=== PATIENT | female | born 1990 | race Two or more races ===

== ENCOUNTER 2024-05-06 05:52 | Emergency (ER) | payer MEDICAID, SELFPAY ==
[2024-05-06 05:53] VITALS: BMI 36.0
[2024-05-06 05:59] VITALS: BP 148/99; PULSE 88; RESP 18; TEMP 36.5; O2SAT 96
--- NOTE | 2024-05-06 06:13 | EDNOTE_ITS ---
ED Female Urogenital RME/HPI General Chief complaint: Urogenital-Female Stated complaint: PELVIC PAIN Time Seen by Provider: 05/06/24 06:05 Source: patient, RN notes reviewed and old records reviewed Arrival date/time: 05/06/24 05:52 Mode of arrival: ambulatory Limitations: no limitations RME / HPI RME / HPI Narrative: 33yof presents to ED for left pelvic pain that initiated this morning. History of ovarian cysts and right oophorectomy, current pain feels similar. Patient c/o nausea but no vomiting. No fever or urinary symptoms reported. Aleve taken at 0300 this morning with mild relief Related Data Home Medications ?Medication ?Instructions ?Recorded ?Confirmed amlodipine 5 mg tablet 5 mg PO DAILY High Blood Pressure 01/02/20 01/02/20 clindamycin HCl 300 mg capsule 300 mg PO BID yeast infection 01/02/20 01/02/20 loratadine 10 mg capsule 10 mg PO QDAY 01/02/20 01/02/20 metformin 1,000 mg tablet 1,000 mg PO BID 01/02/20 01/02/20 Previous Rx's ?Medication ?Instructions ?Recorded pseudoephedrine HCl 30 mg tablet 30 mg PO Q6H #20 tabs 01/28/21 cephalexin 500 mg capsule 500 mg PO QID #28 caps 06/07/22 acetaminophen 500 mg tablet 1,000 mg (2 x 500 mg) PO Q6H PRN 05/06/24 (Tylenol Extra Strength) pain #30 tabs ibuprofen 600 mg tablet 600 mg PO Q6H PRN pain #30 tabs 05/06/24 ondansetron 4 mg disintegrating 4 mg PO Q6H PRN nausea and 05/06/24 tablet vomiting #10 tabs Allergies Allergy/AdvReac Type Severity Reaction Status Date / Time No Known Allergies Allergy Verified 07/04/21 11:49 Review of Systems Review of Systems Systems Reviewed: All systems reviewed, normal except as documented Constitutional Constitutional: Denies chills and Denies fever(s) Gastrointestinal Gastrointestinal: Reports nausea and Denies vomiting Genitourinary Genitourinary: Denies dysuria, Reports pelvic pain and Denies vaginal discharge Musculoskeletal Musculoskeletal: Denies back pain Past Medical History Past Medical History CARDIAC: Positive Hypertension ENDOCRINE: Positive Diabetes Mellitus Type 2 Surgical History OTHER SURGICAL HX: , right oophorectomy Social History SMOKING STATUS: Never smoker SUBSTANCE USE: does not use ALCOHOL: Current (Social) Past Medical History Comments PMH COMMENT: Obesity ED Exam General Limitations: Present no limitations General appearance: Present alert, in no apparent distress and obese Head Head exam: Present atraumatic and normocephalic Eye Eye exam: Present normal appearance, PERRL and EOMI ENT ENT exam: Present normal exam and mucous membranes moist Neck Neck exam: Present normal inspection and full ROM Chest Chest inspection: Present normal inspection and symmetric chest wall rise Respiratory Respiratory exam: Present normal lung sounds bilaterally; Absent respiratory distress Cardiovascular Cardiovascular exam: Present regular rate and normal rhythm Abdominal Exam Abdominal exam: Present soft; Absent distention, tenderness or guarding Extremities Exam Extremities exam: Present normal inspection and full ROM Back Exam Back exam: Absent CVA tenderness (R) or CVA tenderness (L) Neurological Exam Neurological exam: Present alert and oriented X3 Psychiatric Psychiatric exam: Present normal affect and normal mood Skin Skin exam: Present warm, dry, intact and normal color Course Quality Measures none Orders Category Date Time Status US pelvic complete Stat Exams 05/06/24 06:14 Completed CBC Stat Lab 05/06/24 06:42 Completed CMP [Comprehensive Metabolic Panel] Stat Lab 05/06/24 06:42 Completed HCG Qualitative,Urine Stat Lab 05/06/24 06:19 Completed UA [Urinalysis] Stat Lab 05/06/24 06:19 Completed Acetaminophen Tab [Tylenol ES Tab] Med 05/06/24 06:14 Discontinued 1,000 mg PO X1 ONE Ketorolac Inj [Toradol Inj] Med 05/06/24 06:14 Discontinued 30 mg IM X1 ONE Ondansetron Odt [Zofran Odt] Med 05/06/24 06:14 Discontinued 4 mg PO X1 ONE Vital Signs Vital signs: Vital Signs Temperature 97.7 F 05/06/24 05:59 Pulse Rate 88 05/06/24 05:59 Respiratory Rate 18 05/06/24 05:59 Blood Pressure 148/99 H 05/06/24 05:59 Pulse Oximetry (%) 96 05/06/24 05:59 Oxygen Delivery Method Room Air 05/06/24 05:59 Urogenital - Female MDM Narrative MDM Narrative:: 33yof presents to ED for left pelvic pain that initiated this morning. History of ovarian cysts and right oophorectomy, current pain feels similar. Patient c/o nausea but no vomiting. No fever or urinary symptoms reported. Aleve taken at 0300 this morning with mild relief. Patient updated on labs and imaging. Encouraged close follow-up with Chief Physical Therapist as needed. Motrin/Tylenol prn pain. Stable for discharge, RT ED precautions given Patient data External records reviewed:: [facility] previous records (06/06/2022 ED visit for cocaine abuse) Clinical information provided by:: patient Social determinants that could affect healthcare access:: other (specify) (Poor access to healthcare, unemployed) Patient has the following chronic illnesses:: Hypertension, diabetes, obesity, ovarian cyst How is presenting disease/condition affected by chronic disease/condition?: exacerbated by Evaluation data The following diagnostics were reviewed and interpreted by me:: lab results and radiology exam(s) Lab and/or radiology exams considered but not ordered:: None Interpretation Summary: WBC 16 Glucose 257 UA negative for leuks/nitrites Negative Upreg Pelvic ultrasound: Small left ovarian cyst Medications / Prescriptions Medications or Prescriptions considered but not ordered:: No antibiotics recommended at this time Medication administrations:: Medication Administration History Discontinued Medications Acetaminophen (Acetaminophen 500 Mg Tablet) 1,000 mg PO X1 ONE Stop: 05/06/24 06:15 Last Admin: 05/06/24 06:30 Dose: 1,000 mg Documented By: SE Ketorolac Tromethamine (Ketorolac Inj 60 Mg/2 Ml Vial) 30 mg IM X1 ONE Stop: 05/06/24 06:15 Last Admin: 05/06/24 06:34 Dose: 30 mg Documented By: SE Ondansetron HCl (Ondansetron Odt 4 Mg Tabrap) 4 mg PO X1 ONE; Protocol Stop: 05/06/24 06:15 Last Admin: 05/06/24 06:37 Dose: 4 mg Documented By: Above medications administered in the ED Consultations Consultation(s) initiated? (list below): No Diagnosis Urogenital Female Differential Diagnosis: urinary tract infection, cervicitis, ovarian cyst, ruptured ovarian cyst and cystitis Most likely diagnosis given after review of the tests above:: Left ovarian cyst Admission Indicated Admission indicated?: not indicated Admission Request Was there a request for admission?: No Disposition Plan Disposition Plan: Discharge Discharge Attestation Discharge Attestation: The patient and all family members were given an opportunity to ask questions and understood the discharge instructions. Discharge instructions specifically effects, indications for sooner follow up or return to the emergency department, and the expected course of current diagnosis. Patient condition: Stable Discharge Plan Plan Patient Disposition: HOME (Self Care) Patient condition on transfer: Stable Prescriptions/Referrals Prescriptions/Med Rec: New ondansetron 4 mg tablet,disintegrating 4 mg PO Q6H PRN (Reason: nausea and vomiting) Qty: 10 0RF acetaminophen [Tylenol Extra Strength] 500 mg tablet 1,000 mg PO Q6H PRN (Reason: pain) Qty: 30 0RF ibuprofen 600 mg tablet 600 mg PO Q6H PRN (Reason: pain) Qty: 30 0RF No Action pseudoephedrine HCl 30 mg tablet 30 mg PO Q6H Qty: 20 0RF amlodipine 5 mg Tablet 5 mg PO DAILY metformin 1,000 mg Tablet 1,000 mg PO BID loratadine 10 mg Capsule 10 mg PO QDAY clindamycin HCl 300 mg Capsule 300 mg PO BID cephalexin 500 mg capsule 500 mg PO QID Qty: 28 0RF Referrals: Temporary Provider,ED [Physician] - In 1 week Problem List Clinical Impression: Left ovarian cyst, Pelvic pain Patient/Caregiver Discharge Instructions Education Materials: ED Ovarian Cyst Print Language: Armenian Stand Alone Forms: Tabatha Award Info., Patient Portal Info Letter PA/ABSORPTION PLANT OPERATOR HELPER Supervising Physician PA/ABSORPTION PLANT OPERATOR HELPER Supervising Physician: Tammy
--- NOTE | 2024-05-06 06:14 | XR_ITS ---
Examination: Pelvic ultrasound, transabdominal, complete Technique: Transabdominal ultrasound of the pelvis performed using grayscale imaging Date and time of exam: May 06, 2024 0735 hrs. Comparison July 23, 2019 Indications: Left-sided pelvic pain beginning one month ago, history removal left ovarian cyst 11 years ago Findings: Uterus 9.1 x 4.0 x 6.0 cm Intrauterine device satisfactory position No uterine mass or intrauterine gestation Absent right ovary Left ovary 4.5 x 2.5 x 3.0 cm arterial flow, 2.0 x 1.5 x 1.5 cm simple cyst Impression: Intrauterine device satisfactory position Small left ovarian cyst
[2024-05-06] MEDS: ACETAMINOPHEN 500 MG TABLET 1000 MG PO (06:30)
[2024-05-06] MEDS: KETOROLAC INJ 60 MG/2 ML VIAL 30 MG IM (06:34)
[2024-05-06] MEDS: ONDANSETRON ODT 4 MG TABRAP PO (06:37)
[2024-05-06 06:42] LABS: Collection Type, Urine Clean Catch
[2024-05-06 07:09] LABS: Basophils # (Auto) 0.1 Thou/mm3 (0.0-0.2); Basophils % (Auto) 1 % (0-2.5); Eosinophils # (Auto) 0.3 Thou/mm3 (0.0-0.5); Eosinophils % (Auto) 2 % (0-10); Hematocrit 40.4 % (36.0-46.0); Immature Granulocytes % (Auto) 0 % (0-0); Immature Granulocytes Auto 0.07 Thou/mm3 (0.00-0.00); Lymphocytes # (Auto) 6.1 Thou/mm3 (1.0-4.8); Lymphocytes % (Auto) 38 % (10-50); Mean Corpuscular HGB Conc 34.7 g/dl (31.0-37.0); Mean Corpuscular Volume 90 fL (80-100); Monocytes # (Auto) 1.3 Thou/mm3 (0.0-0.8); Monocytes % (Auto) 8 % (0-12); Neutrophils # (Auto) 8.2 Thou/mm3 (1.8-7.7); Neutrophils % (Auto) 52 % (37-80); Nucleated Red Blood Cell % 0 /100 WBC (0); Platelet Count 386 Thou/mm3 (140-440); RDW Standard Deviation 43.6 fL (36.4-46.3); Red Blood Count 4.51 Miln/mm3 (4.00-5.20)
[2024-05-06 07:19] LABS: Alanine Aminotransferase 25 U/L (10-49); Albumin, Serum 4.9 gm/dL (3.5-5.0); Albumin/Globulin Ratio 1.8 (1.2-2.2); Alkaline Phosphatase 42 U/L (46-116); Anion Gap 6 (7-16); Aspartate Amino Transferase 11 U/L (0-34); BUN/Creatinine Ratio 25 Ratio (12-20); Bilirubin,Total 0.3 mg/dL (0.3-1.2); Blood Urea Nitrogen 20 mg/dL (9-23); Calcium 10.1 mg/dL (8.3-10.6); Calcium (Corrected) 10.1 mg/dL (8.5-10.1); Carbon Dioxide 27.5 mMol/L (20.0-31.0); Chloride 100 mMol/L (98-107); Creatinine (Component) 0.8 mg/dL (0.6-1.3); Globulin 2.7 gm/dL (2.3-3.5); Glucose 257 mg/dL (74-106); Osmolality,Calculated 277 (275-295); Potassium 4.3 mMol/L (3.4-5.1); Sodium 133 mMol/L (136-145); Total Protein 7.6 gm/dL (5.7-8.2); eGFR > 60 See Note
[2024-05-06 07:30] LABS: Bilirubin,Urine Negative (Negative); Blood,Urine Negative (Negative); Clarity,Urine Clear (Clear/Hazy); Color,Urine Lt-Yellow (Lt Yel-Yel); Glucose, Urine 3+ (Negative); Ketones,Urine Trace (Negative); Leukocyte Esterase,Urine Negative (Negative); Nitrite,Urine Negative (Negative); PH,Urine 6.5 (5.0-7.0); Protein,Urine Negative (Neg - Trace); RBC,Urine 1 /hpf (0-3); Specific Gravity,Urine 1.023 (1.001-1.035); Squamous Epithelial Cell,Urine 7 /hpf (0-5); Urobilinogen,Urine Negative mg/dL (0.0-1.0); WBC,Urine 1 /hpf (0-5)
[2024-05-06 07:47] LABS: Sperm,Urine Absent
[2024-05-06 07:48] LABS: HCG Qualitative,Urine Negative
== END 2024-05-06 08:33 | disposition home or self-care (01) ==
PROVIDERS: Physician Assistant; Emergency Provider Emergency Medicine; PCP Internal Medicine
DX: N83.202 Unspecified ovarian cyst, left side (principal)
CPT/HCPCS: 36415; 76856; 80053; 81001; 81025; 85025; 96372; 99284; J1885; Q0162; A9270

== ENCOUNTER 2024-08-27 03:53 | Emergency (ER) | payer MEDICAID, SELFPAY ==
[2024-08-27 04:04] VITALS: BMI 37.8
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
[2024-08-27 04:11] VITALS: BP 152/93; PULSE 120; RESP 19; TEMP 37; O2SAT 96
== END 2024-08-27 04:40 ==
PROVIDERS: Emergency Provider Emergency Medicine
DX: Z02.89 Encounter for other administrative examinations (principal); Z04.1 Encounter for examination and observation following transport accident
CPT/HCPCS: 99281

== ENCOUNTER 2024-10-03 05:48 | Emergency (ER) | payer MEDICAID, SELFPAY ==
[2024-10-03 05:49] VITALS: BMI 37.8
[2024-10-03 06:27] VITALS: BP 170/122; PULSE 96; RESP 17; TEMP 37; O2SAT 97
--- NOTE | 2024-10-03 06:39 | XR_ITS ---
Examination: Knee, right , 3 views Technique: Knee AP, lateral, oblique 3 views Date and time of exam: October 03, 2024 0736 hours INDICATIONS: Patient fell 3 days ago with injury to the knee, knee pain. FINDINGS: No fracture or dislocation. Small knee effusion IMPRESSION: No fracture or dislocation
--- NOTE | 2024-10-03 06:43 | EDNOTE_ITS ---
ED Skin Abcess FB-RME/HPI General Chief complaint: Skin/Abscess/Foreign Body Stated complaint: RIGHT KNEE INJURY Time Seen by Provider: 10/03/24 06:24 Arrival date/time: 10/03/24 05:48 This is a 33-year-old female that comes in with complaints of right knee injury that happened 3 days ago. Patient states she fell onto her right knee. Patient states she was walking on and even cement. Patient denies any other trauma. Patient has a large abrasion to her right knee. Patient reports that she is diabetic, has history of high blood pressure. Related Data Home Medications ?Medication ?Instructions ?Recorded ?Confirmed amlodipine 5 mg tablet 5 mg PO DAILY High Blood Pre ssure 01/02/20 01/02/20 clindamycin HCl 300 mg capsule 300 mg PO BID yeast inf ection 01/02/20 01/02/20 loratadine 10 mg capsule 10 mg PO QDAY 01/02/2001/01 metformin 1,000 mg tablet 1,000 mg PO BID 01/02/2004/12 Previous Rx's ?Medication ?Instructions ?Recorded pseudoephedrine HCl 30 mg tablet 30 mg PO Q6H #20 tabs 01/28/21 cephalexin 500 mg capsule 500 mg PO QID #28 caps 06/07 acetaminophen 500 mg tablet 1,000 mg (2 x 500 mg) PO Q 6H PRN 05/06/24 (Tylenol Extra Strength) pain #30 tabs ibuprofen 600 mg tablet 600 mg PO Q6H PRN pain #30 t abs 05/06/24 ondansetron 4 mg disintegrating 4 mg PO Q6H PRN nausea and 05/06/24 tablet vomiting #10 tabs ibuprofen 800 mg tablet 800 mg PO Q6H PRN pain #14 t abs 10/03/24 Allergies Allergy/AdvReac Type Severity Reaction Status Date / Time No Known Allergies Allergy Verified 08/27/24 03:58 Review of Systems Review of Systems Systems Reviewed: All systems reviewed, normal except as documented Past Medical History Past Medical History CARDIAC: Positive Hypertension ENDOCRINE: Positive Diabetes Mellitus Type 2 Surgical History OTHER SURGICAL HX: , right oophorectomy Social History SMOKING STATUS: Never smoker SUBSTANCE USE: does not use ALCOHOL: Current (Social) Past Medical History Comments PMH COMMENT: Obesity ED Exam General General appearance: Present alert and in no apparent distress Head Head exam: Present atraumatic Eye Eye exam: Present normal appearance, PERRL and EOMI ENT ENT exam: Present normal exam, normal oropharynx and mucous membranes moist Neck Neck exam: Present normal inspection, full ROM and trachea midline Chest Chest inspection: Present normal inspection and symmetric chest wall rise Respiratory Respiratory exam: Present other (breathing even and unlabored) Cardiovascular Cardiovascular exam: Present regular rate and other (cap refill less than 2 seconds ) Abdominal Exam Abdominal exam: Present soft Extremities Exam Extremities exam: Present full ROM (5x5cm approx abrasion right knee) and other Back Exam Back exam: Present normal inspection and full ROM Neurological Exam Neurological exam: Present alert, oriented X3 and CN II-XII intact Psychiatric Psychiatric exam: Present normal affect and normal mood Skin Skin exam: Present warm, dry, intact and normal color Course Quality Measures none Orders Category Date Time Status Wound Care NOW Care 10/03/24 07:30 Completed XR knee RT 3V Stat Exams 10/03/24 06:39 Completed Acetaminophen Tab [Tylenol ES Tab] Med 10/03/24 06:39 Discontinued 1,000 mg PO X1 ONE Ibuprofen Tab [Motrin Tab] Med 10/03/24 06:39 Discontinued 800 mg PO X1 ONE TET,DIP/PERT AC (Adult)-Tdap [Boostrix Adult (Tdap) Med 10/03/24 06:39 Discontinued Vacc] 0.5 ml IMI .ONCE ONE Vital Signs Vital signs: Vital Signs Temperature 98.6 F 10/03/24 06:27 Pulse Rate 96 10/03/24 06:27 Respiratory Rate 17 10/03/24 06:27 Blood Pressure 170/122 H 10/03/24 06:27 Pulse Oximetry (%) 97 10/03/24 06:27 Oxygen Delivery Method Room Air 10/03/24 06:27 Skin / Abscess / Foreign Body MDM Narrative MDM Narrative:: knee x ray: FINDINGS: No fracture or dislocation. Small knee effusion IMPRESSION: No fracture or dislocation No acute fracture noted on x-ray. Patient wound cleansed. There is nothing to suture . Patient has a large abrasion approximately 5 x 5 cm to right knee. Patient told to elevate and ice knee at home. Today patient had xray of the knee. there was no acute fracture seen. Patient has a small knee effusion. . I explained to patient at length that if there was continued pain to this area or worsened to come back to ED or see primary provider for more xrays or further testing such as CT scan or MRI. X rays are not perfect and sometimes serial films needed. Patient verbalized understanding. Patient states they will follow up with primary provider in 1-2 days or come back to ED if symptoms change or worsen. Patient data External records reviewed:: [facility] previous records Clinical information provided by:: patient Social determinants that could affect healthcare access:: none Patient has the following chronic illnesses:: none How is presenting disease/condition affected by chronic disease/condition?: no chronic disease Evaluation data The following diagnostics were reviewed and interpreted by me:: radiology exam(s) Lab and/or radiology exams considered but not ordered:: none Interpretation Summary: see note Medications / Prescriptions Medications or Prescriptions considered but not ordered:: none Medication administrations:: Medication Administration History Discontinued Medications Acetaminophen (Acetaminophen 500 Mg Tablet) 1,000 mg PO X1 ONE Stop: 10/03/24 06:40 Last Admin: 10/03/24 07:19 Dose: 1,000 mg Documented By: GINGER Diphtheria/Tetanus/Acell Pertussis (Diphth,Pertuss(Acell),Tet Vac 0.5 Ml Syr- Adult) 0.5 ml IMi .ONCE ONE Stop: 10/03/24 06:40 Last Admin: 10/03/24 07:21 Dose: 0.5 ml Documented By: GINGER Ibuprofen (Ibuprofen Tab 400 Mg Tablet) 800 mg PO X1 ONE Stop: 10/03/24 06:40 Last Admin: 10/03/24 07:19 Dose: 800 mg Documented By: GINGER see note Consultations Consultation(s) initiated? (list below): No Diagnosis Skin/Abscess Differential Diagnosis: abscess of skin or subcutaneous tissue, cellulitis and other (abrasion, alvulsion) Most likely diagnosis given after review of the tests above:: early cellitis Admission Indicated Admission indicated?: not indicated Admission Request Was there a request for admission?: No Disposition Plan Disposition Plan: Discharge Discharge Attestation Discharge Attestation: The patient and all family members were given an opportunity to ask questions and understood the discharge instructions. Discharge instructions specifically effects, indications for sooner follow up or return to the emergency department, and the expected course of current diagnosis. Patient condition: Stable Discharge Plan Plan Patient Disposition: HOME (Self Care) Patient condition on transfer: Stable Prescriptions/Referrals Prescriptions/Med Rec: New ibuprofen 800 mg tablet 800 mg PO Q6H PRN (Reason: pain) Qty: 14 0RF No Action pseudoephedrine HCl 30 mg tablet 30 mg PO Q6H Qty: 20 0RF amlodipine 5 mg Tablet 5 mg PO DAILY metformin 1,000 mg Tablet 1,000 mg PO BID loratadine 10 mg Capsule 10 mg PO QDAY clindamycin HCl 300 mg Capsule 300 mg PO BID cephalexin 500 mg capsule 500 mg PO QID Qty: 28 0RF ondansetron 4 mg tablet,disintegrating 4 mg PO Q6H PRN (Reason: nausea and vomiting) Qty: 10 0RF acetaminophen [Tylenol Extra Strength] 500 mg tablet 1,000 mg PO Q6H PRN (Reason: pain) Qty: 30 0RF ibuprofen 600 mg tablet 600 mg PO Q6H PRN (Reason: pain) Qty: 30 0RF Referrals: Nelson BINGHAM),Diane, MODESTO [Primary Care Provider] - In 1 week Problem List Clinical Impression: Contusion of knee, Effusion of knee Patient/Caregiver Discharge Instructions Discharge Activity: activity as tolerated Education Materials: ED Contusion, Lower Extremity, ED Knee Effusion Additional Instructions: Follow up with primary provider in 1-2 days. Come back to ED if symptoms change or worsen Print Language: Amharic Stand Alone Forms: Tabatha Award Info., Patient Portal Info Letter NAE/AUTO COLLISION REPAIR INSTRUCTOR Supervising Physician NAE/MODESTO Supervising Physician: merrick
[2024-10-03] MEDS: ACETAMINOPHEN 500 MG TABLET 1000 MG PO (07:19)
[2024-10-03] MEDS: IBUPROFEN TAB 400 MG TABLET 800 MG PO (07:19)
[2024-10-03] MEDS: DIPHTH,PERTUSS(ACELL),TET VAC 0.5 ML SYR- ADULT IMi (07:21)
== END 2024-10-03 08:53 | disposition home or self-care (01) ==
PROVIDERS: Emergency Provider Emergency Medicine; PCP Nurse Practitioner Primary Care
DX: S80.01XA Contusion of right knee, initial encounter (principal); W18.30XA Fall on same level, unspecified, initial encounter; Y93.01 Activity, walking, marching and hiking; Z23 Encounter for immunization; E11.9 Type 2 diabetes mellitus without complications
CPT/HCPCS: 73562; 90471; 90715; 99283; A9270

== ENCOUNTER 2024-12-24 04:19 | Emergency (ER) | payer SELFPAY ==
[2024-12-24 04:20] VITALS: BMI 37.8
[2024-12-24 04:21] VITALS: BP 184/134; RESP 95; TEMP 36.6; O2SAT 97
[2024-12-24 04:34] VITALS: BP 172/127; BP 184/134; PULSE 95; RESP 18; TEMP 36.6; O2SAT 97
--- NOTE | 2024-12-24 06:16 | EKG_ITS ---
[facility] Test Date: 2024-12-24 Pat Name: LIANA DANIEL Department: Room: - Gender: Female Paving Stone Installer: : 1990 Requested By: Geo Byers Order Number: [id number] Reading MD: Geo Byers Measurements Intervals [place] Rate: 99 P: 37 VA: 142 QRS: -34 QRSD: 86 T: 17 QT: 354 QTc: 454 Interpretive Statements SINUS RHYTHM LEFT AXIS DEVIATION [QRS AXIS < -30] POSSIBLE ANTERIOR MYOCARDIAL INFARCTION , OF INDETERMINATE AGE [30 ms Q WAVE IN V3/V4, OR R < 0.2 mV IN V4] Compared to ECG 05/04/2020 00:07:48 Left-axis deviation now present Myocardial infarct finding now present /store/S0/[id number]
--- NOTE | 2024-12-24 06:17 | EDNOTE_ITS ---
ED Arrhythmia Palp. RME/HPI General Chief Complaint: General Adult/Misc Complain Stated Complaint: HIGH BLOOD PRESSURE Time Seen by Provider: 12/24/24 04:41 Source: patient Arrival date/time: 12/24/24 04:19 34-year-old female with a history of hypertension presents to the emergency room with a chief complaint of an elevated blood pressure reading while at work at 2 AM. Patient denies any chest pain palpitations or any other symptoms Mode of arrival: ambulatory Limitations: no limitations Related Data Home Medications ?Medication ?Instructions ?Recorded ?Confirmed amlodipine 5 mg tablet 5 mg PO DAILY High Blood Pre ssure 01/02/20 01/02/20 clindamycin HCl 300 mg capsule 300 mg PO BID yeast inf ection 01/02/20 01/02/20 loratadine 10 mg capsule 10 mg PO QDAY 01/02/2001/01 metformin 1,000 mg tablet 1,000 mg PO BID 01/02/2004/12 Previous Rx's ?Medication ?Instructions ?Recorded pseudoephedrine HCl 30 mg tablet 30 mg PO Q6H #20 tabs 01/28/21 cephalexin 500 mg capsule 500 mg PO QID #28 caps 06/07 acetaminophen 500 mg tablet 1,000 mg (2 x 500 mg) PO Q 6H PRN 05/06/24 (Tylenol Extra Strength) pain #30 tabs ibuprofen 600 mg tablet 600 mg PO Q6H PRN pain #30 t abs 05/06/24 ondansetron 4 mg disintegrating 4 mg PO Q6H PRN nausea and 05/06/24 tablet vomiting #10 tabs ibuprofen 800 mg tablet 800 mg PO Q6H PRN pain #14 t abs 10/03/24 amlodipine 5 mg tablet 5 mg PO QDAY #14 tabs Allergies Allergy/AdvReac Type Severity Reaction Status Date / Time No Known Allergies Allergy Verified 12/24/24 04:28 Review of Systems Review of Systems Systems Reviewed: All systems reviewed, normal except as documented Constitutional Constitutional: Reports system reviewed and no additional complaints, except as documented, Denies fatigue, Denies fever(s), Denies headache(s) and Denies weakness Eyes Eyes: Reports system reviewed and no additional complaints, except as doc umented, Denies blurry vision and Denies change in vision ENT Ears, Nose, Mouth, and Throat: Reports system reviewed and no additional complaints, except as documented, Denies otalgia, Denies headache(s), Denies nasal congestion, Denies throat swelling and Denies vertigo Cardiovascular Cardiovascular: Reports system reviewed and no additional complaints, except as documented, Denies chest pain, Denies chest pain at rest, Denies dyspnea, Denies dyspnea on exertion and Denies irregular heart rhythm Respiratory Respiratory: Reports system reviewed and no additional complaints, except as documented, Denies chest congestion, Denies cough, Denies dyspnea, Denies dyspnea on exertion and Denies wheezing Gastrointestinal Gastrointestinal: Reports system reviewed and no additional complaints, except as documented, Denies abdominal pain, Denies cramping, Denies nausea and Denies vomiting Genitourinary Genitourinary: Reports system reviewed and no additional complaints, except as documented Musculoskeletal Musculoskeletal: Reports system reviewed and no additional complaints, except as documented and Denies back pain Integumentary/Breasts Skin/Breast: Reports system reviewed and no additional complaints, except as documented and Denies wounds Neurologic Neurologic: Reports system reviewed and no additional complaints, except as documented, Denies confusion, Denies headache(s), Denies lack of coordination, Denies vertigo and Denies weakness Psychiatric Psychiatric: Reports system reviewed and no additional complaints, except as documented, Denies anxiety, Denies confusion, Denies depression, Denies paranoia, Denies suicidal ideation and Denies tactile hallucinations Endocrine Endocrine: Reports system reviewed and no additional complaints, except as documented and Denies fatigue Hematologic/Lymphatic Hematologic/Lymphatic: Reports system reviewed and no additional complaints, except as documented and Denies lymphadenopathy Allergic/Immunologic Allergic/Immunologic: Reports system reviewed and no additional complaints, except as documented, Denies throat swelling, Denies urticaria and Denies wheezing Past Medical History Past Medical History NEUROLOGIC: Negative Neurological Disorders CARDIAC: Positive Cardiac Disorders and Hypertension; Negative Congestive Heart Failure RESPIRATORY: Negative Chronic Obstructive Pulmonary Disease (COPD) GASTROINTESTINAL: Negative Gastrointestinal Disorders or Hepatitis GENITOURINARY: Negative Genitourinary Disorders or Renal Disease REPRODUCTIVE: Positive Previous Pregnancies MUSCULOSKELETAL: Negative Musculoskeletal Disorders ENDOCRINE: Positive Endocrine Disorders and Diabetes Mellitus Type 2; Negative Diabetes Mellitus Type 1 HEMATOLOGIC: Negative Blood Disorders OTHER HISTORY: Negative Autoimmune Disease, Blood Transfusions, Anesthesia Reactions, MRSA, VRSA, Vancomycin-Resistant Enterococci, Human Immunodeficiency Virus (HIV), Chicken Pox, Measles, Mumps, Rubella (Romansh Measles), Pertussis, Clostridium Difficile or Cancer Family History FAMILY HISTORY: Negative Family Psychiatric Problems, Family Respiratory Disorders, Family Cardiac Disorders, Family Gastrointestinal Problems, Family Cancer, Family Surgery or Family Anesthesia Reaction Surgical History SURGICAL: Positive Section (x2); Negative Cardiac Surgery, Endocrine Surgery, Thyroidectomy, Ear Surgery, Abdominal Surgery, Nephrectomy, Joint Replacement, Neurologic Surgery or Brain Shunt Social History SMOKING STATUS: Current some day smoker SECOND HAND EXPOSURE: No SUBSTANCE USE: does not use ED Exam General Limitations: Present no limitations General appearance: Present alert and in no apparent distress Head Head exam: Present atraumatic Eye Eye exam: Present normal appearance, PERRL and EOMI ENT ENT exam: Present normal exam, normal oropharynx and mucous membranes moist Neck Neck exam: Present normal inspection, full ROM and trachea midline Chest Chest inspection: Present normal inspection and symmetric chest wall rise Respiratory Respiratory exam: Present normal lung sounds bilaterally; Absent respiratory distress, wheezes, stridor, accessory muscle use or prolonged expiratory phase Cardiovascular Cardiovascular exam: Present regular rate, normal rhythm and normal heart so unds; Absent tachycardia Abdominal Exam Abdominal exam: Present soft and normal bowel sounds; Absent distention, tenderness, guarding or rebound Extremities Exam Extremities exam: Present normal inspection and full ROM Back Exam Back exam: Present normal inspection and full ROM Neurological Exam Neurological exam: Present alert, oriented X3 and CN II-XII intact Psychiatric Psychiatric exam: Present normal affect and normal mood Skin Skin exam: Present warm, dry, intact and normal color Course Quality Measures none Orders Category Date Time Status EKG (ED ONLY) *Do not use* NOW Care 12/24/24 06:16 Active EKG (ED Only) Stat Exams 12/24/24 06:16 Ordered B-Type Natriuretic Peptide Stat Lab 12/24/24 06:16 Ordered CBC Stat Lab 12/24/24 06:16 Ordered Comprehensive Metabolic Panel Stat Lab 12/24/24 06:16 Ordered Troponin I Stat Lab 12/24/24 06:16 Ordered cloNIDine HCL [Catapres] Med 12/24/24 06:16 Once 0.1 mg PO X1 ONE Vital Signs Vital signs: Vital Signs Temperature 98 F 12/24/24 04:21 Respiratory Rate 95 H 12/24/24 04:21 Blood Pressure 184/134 H 12/24/24 04:21 Pulse Oximetry (%) 97 12/24/24 04:21 Oxygen Delivery Method Room Air 12/24/24 04:21 Arrhythmia/Palpitations MDM Narrative MDM Narrative:: 34-year-old female with a history of hypertension presents to the emergency room with a chief complaint of an elevated blood pressure reading while at work at 2 AM. Patient denies any chest pain palpitations or any other symptoms Patient is hemodynamically stable and in no apparent distress. Patient's initial blood pressure was 184/134. Antihypertensive medication was given which significantly improved the patient's blood pressure. The patient has a strong and regular rhythm S1 and S2 is noted. There is no swelling to the bilateral lower extremities. The patient denies any other symptoms such as chest pain palpitations stomach pain or shortness of breath. An EKG was completed and shows normal sinus rhythm at [address] deviation CBC CMP troponin BNP were within normal limits Patient's blood pressure dropped down to 145/102. I sent the patient a prescription for her antihypertensive medication which she has not taken in 3 days. The patient was also educated to follow-up with her primary care provider Patient was discharged and educated to follow-up with primary care provider in the next 24 to 48 hours and return to the emergency room for any evidence of worsening signs or symptoms Patient data External records reviewed:: [facility] previous records Clinical information provided by:: patient Social determinants that could affect healthcare access:: none Patient has the following chronic illnesses:: Hypertension and type 2 diabetes How is presenting disease/condition affected by chronic disease/condition?: exacerbated by Evaluation data The following diagnostics were reviewed and interpreted by me:: lab results and radiology exam(s) Lab and/or radiology exams considered but not ordered:: Labs and radiology exams considered in order Interpretation Summary: N/A Medications / Prescriptions Medications or Prescriptions considered but not ordered:: Medication given Medication administrations:: Medication given Consultations Consultation(s) initiated? (list below): No Diagnosis Differential diagnosis arrhythmia/palpitations: palpitations, anxiety and other (Hypertension urgency/hypertension emergency) Most likely diagnosis given after review of the tests above:: Asymptomatic hypertension urgency Admission Indicated Admission indicated?: not indicated Admission Request Was there a request for admission?: No Disposition Plan Disposition Plan: Discharge Discharge Attestation Discharge Attestation: The patient and all family members were given an opportunity to ask questions and understood the discharge instructions. Discharge instructions specifically effects, indications for sooner follow up or return to the emergency department, and the expected course of current diagnosis. Patient condition: Stable Discharge Plan Plan Patient Disposition: HOME (Self Care) Discharge Disposition comment: Stable Prescriptions/Referrals Prescriptions/Med Rec: New amlodipine 5 mg tablet 5 mg PO QDAY Qty: 14 0RF No Action pseudoephedrine HCl 30 mg tablet 30 mg PO Q6H Qty: 20 0RF amlodipine 5 mg Tablet 5 mg PO DAILY metformin 1,000 mg Tablet 1,000 mg PO BID loratadine 10 mg Capsule 10 mg PO QDAY clindamycin HCl 300 mg Capsule 300 mg PO BID cephalexin 500 mg capsule 500 mg PO QID Qty: 28 0RF ondansetron 4 mg tablet,disintegrating 4 mg PO Q6H PRN (Reason: nausea and vomiting) Qty: 10 0RF acetaminophen [Tylenol Extra Strength] 500 mg tablet 1,000 mg PO Q6H PRN (Reason: pain) Qty: 30 0RF ibuprofen 600 mg tablet 600 mg PO Q6H PRN (Reason: pain) Qty: 30 0RF ibuprofen 800 mg tablet 800 mg PO Q6H PRN (Reason: pain) Qty: 14 0RF Referrals: No Primary/Family,Physician [Primary Care Provider] - In 1 week Problem List Clinical Impression: Asymptomatic hypertensive urgency Patient/Caregiver Discharge Instructions Additional Instructions: Please follow-up with your primary care provider in the next 24 to 48 hours I sent over prescription of your blood pressure medication. Please pick it up and take it as indicated For any evidence of worsening signs or symptoms return to the emergency room immediately Print Language: Welsh Stand Alone Forms: Tabatha Award Info., Patient Portal Info Letter PA/CREWMAN ARMOURED PERSONNEL CARRIER M113 Supervising Physician PA/CREWMAN ARMOURED PERSONNEL CARRIER M113 Supervising Physician: Dr. Deleon
[2024-12-24 07:17] LABS: Basophils # (Auto) 0.1 Thou/mm3 (0.0-0.2); Basophils % (Auto) 1 % (0-2.5); Eosinophils # (Auto) 0.3 Thou/mm3 (0.0-0.5); Eosinophils % (Auto) 2 % (0-10); Hematocrit 43.9 % (36.0-46.0); Hemoglobin 14.9 g/dL (12.0-16.0); Immature Granulocytes Auto 0.07 Thou/mm3 (0.00-0.00); Lymphocytes # (Auto) 6.7 Thou/mm3 (1.0-4.8); Lymphocytes % (Auto) 41 % (10-50); Mean Corpuscular HGB Conc 33.9 g/dl (31.0-37.0); Mean Corpuscular Hemoglobin 30.4 pg (25.0-35.0); Mean Corpuscular Volume 90 fL (80-100); Monocytes # (Auto) 1.2 Thou/mm3 (0.0-0.8); Monocytes % (Auto) 7 % (0-12); Neutrophils # (Auto) 8.0 Thou/mm3 (1.8-7.7); Neutrophils % (Auto) 49 % (37-80); Nucleated Red Blood Cell # 0.00 Thou/mm3 (0.00-0.00); Nucleated Red Blood Cell % 0 /100 WBC (0); Platelet Count 434 Thou/mm3 (140-440); RDW Standard Deviation 43.8 fL (36.4-46.3); Red Blood Count 4.90 Miln/mm3 (4.00-5.20); White Blood Count 16.3 Thou/mm3 (3.6-11.0)
[2024-12-24 07:32] VITALS: BP 145/102; PULSE 98
[2024-12-24 07:43] LABS: B-Type Natriuretic Peptide < 20 pg/mL (0-100)
[2024-12-24 07:46] LABS: Alanine Aminotransferase 25 U/L (10-49); Albumin, Serum 5.0 gm/dL (3.5-5.0); Albumin/Globulin Ratio 1.7 (1.2-2.2); Alkaline Phosphatase 43 U/L (46-116); Anion Gap 12 (7-16); Aspartate Amino Transferase 18 U/L (0-34); BUN/Creatinine Ratio 14 Ratio (12-20); Bilirubin,Total 0.5 mg/dL (0.3-1.2); Blood Urea Nitrogen 14 mg/dL (9-23); Calcium 10.1 mg/dL (8.3-10.6); Calcium (Corrected) 10.1 mg/dL (8.5-10.1); Carbon Dioxide 23.6 mMol/L (20.0-31.0); Chloride 99 mMol/L (98-107); Creatinine (Component) 1.0 mg/dL (0.6-1.3); Estimated Creatinine Clearance 91.0 mL/min (>60); Globulin 2.9 gm/dL (2.3-3.5); Glucose 218 mg/dL (74-106); Osmolality,Calculated 277 (275-295); Potassium 3.8 mMol/L (3.4-5.1); Sodium 135 mMol/L (136-145); Total Protein 7.9 gm/dL (5.7-8.2); Troponin I < 0.002 ng/mL (0.0-0.045); eGFR > 60 See Note
[2024-12-24 08:16] VITALS: BP 140/90; PULSE 87; RESP 18; TEMP 36.9; O2SAT 99
== END 2024-12-24 08:19 | disposition home or self-care (01) ==
PROVIDERS: Nurse Practitioner Family; Emergency Provider Family Medicine
DX: I16.0 Hypertensive urgency (principal); I10 Essential (primary) hypertension; R94.31 Abnormal electrocardiogram [ECG] [EKG]; F17.200 Nicotine dependence, unspecified, uncomplicated
CPT/HCPCS: 36415; 80053; 83880; 84484; 85025; 93005; 99283; A9270

== ENCOUNTER → 2025-03-07 | Outpatient (CLI) | payer MEDICAID, SELFPAY ==
--- NOTE | 2025-03-07 13:30 | XR_ITS ---
EXAMINATION: Transabdominal pelvic sonography TECHNIQUE: Grayscale transabdominal sonographic images pelvis Date and time: March 07, 2025, 1415 hours INDICATIONS: Left pelvic pain beginning several months ago, history left ovarian cyst, history removal right ovary. FINDINGS: Uterus 12.1 cm endometrial stripe 0.6 cm No uterine mass or intrauterine gestation Right ovary removed Left ovary 3.9 cm arterial flow 19 x 14 x 17 mm cyst IMPRESSION: Left ovarian simple cyst 19 x 14 x 17 mm
--- NOTE | 2025-03-07 13:30 | XR_ITS ---
EXAMINATION: Transvaginal pelvic sonography completed TECHNIQUE: Grayscale sonographic transvaginal sonographic images pelvis INDICATIONS: Left pelvic pain several months, history left ovarian cyst, history removal right ovary 2013 FINDINGS: No diagnostic visualization uterus Right ovary removed 2013 Left ovary obscured by bowel gas IMPRESSION: Severely limited study as above secondary to bowel gas
== END | disposition home or self-care (01) ==
DX: N83.202 Unspecified ovarian cyst, left side (principal)
CPT/HCPCS: 76830; 76856; J1100; J2405; J2704; J3010

== ENCOUNTER 2025-04-01 23:37 | Emergency (ER) | payer MEDICAID, SELFPAY ==
[2025-04-01 23:38] VITALS: BMI 37.8
[2025-04-02 00:02] VITALS: BP 127/86; PULSE 95; RESP 20; TEMP 37.2; O2SAT 97
--- NOTE | 2025-04-02 00:09 | XR_ITS ---
Examination: CT abdomen and pelvis without contrast. Coronal 3-D reconstructions. Sagittal 2-D reconstructions. Date and time of exam: April 02, 2025, 0258 hours, comparison September 04, 2012 INDICATIONS: Pelvic abdominal pain several years worse the last 24 hours, diagnosis history left ovarian cyst CTDI: vol (mGy): 12.6 DLP: (mGycm): 713 Technique: Axial images of the abdomen have been obtained, 3 mm slice thickness Intravenous contrast material has not been administered. Low dose protocols were performed. One or more of the following dose reduction techniques were used; automated exposure control, adjustment of the mA and/or KV according to patient size, use of iterative reconstruction technique. Findings: Hepatomegaly 23 cm, liver irregular in contour, no focal liver lesions No gallstones Spleen is not enlarged No pancreatic or adrenal mass No renal or ureteral calculi, no hydronephrosis Aorta normal size Tiny fat-containing umbilical hernia Normal appendix Complex upper central pelvic cystic mass, measuring at least 11.4 cmAnteverted uterus Contracted urinary bladder with urinary bladder wall thickening Osseous structures are intact IMPRESSION: Hepatomegaly, 23 cm, liver irregular in contour Normal appendix
[2025-04-02 00:55] LABS: Basophils # (Auto) 0.1 Thou/mm3 (0.0-0.2); Basophils % (Auto) 0 % (0-2.5); Eosinophils # (Auto) 0.2 Thou/mm3 (0.0-0.5); Eosinophils % (Auto) 1 % (0-10); Hematocrit 37.7 % (36.0-46.0); Hemoglobin 12.9 g/dL (12.0-16.0); Immature Granulocytes Auto 0.05 Thou/mm3 (0.00-0.00); Lymphocytes # (Auto) 3.9 Thou/mm3 (1.0-4.8); Lymphocytes % (Auto) 28 % (10-50); Mean Corpuscular HGB Conc 34.2 g/dl (31.0-37.0); Mean Corpuscular Hemoglobin 30.5 pg (25.0-35.0); Mean Corpuscular Volume 89 fL (80-100); Monocytes # (Auto) 1.0 Thou/mm3 (0.0-0.8); Monocytes % (Auto) 7 % (0-12); Neutrophils # (Auto) 8.6 Thou/mm3 (1.8-7.7); Neutrophils % (Auto) 62 % (37-80); Nucleated Red Blood Cell # 0.00 Thou/mm3 (0.00-0.00); Nucleated Red Blood Cell % 0 /100 WBC (0); Platelet Count 377 Thou/mm3 (140-440); RDW Standard Deviation 44.5 fL (36.4-46.3); Red Blood Count 4.23 Miln/mm3 (4.00-5.20); White Blood Count 13.8 Thou/mm3 (3.6-11.0)
[2025-04-02 01:19] LABS: Alanine Aminotransferase 30 U/L (10-49); Albumin, Serum 5.0 gm/dL (3.5-5.0); Albumin/Globulin Ratio 2.1 (1.2-2.2); Alkaline Phosphatase 45 U/L (46-116); Anion Gap 11 (7-16); Aspartate Amino Transferase 21 U/L (0-34); BUN/Creatinine Ratio 14 Ratio (12-20); Bilirubin,Total 0.5 mg/dL (0.3-1.2); Blood Urea Nitrogen 13 mg/dL (9-23); Calcium 10.3 mg/dL (8.3-10.6); Calcium (Corrected) 10.3 mg/dL (8.5-10.1); Carbon Dioxide 23.4 mMol/L (20.0-31.0); Chloride 103 mMol/L (98-107); Creatinine (Component) 0.9 mg/dL (0.6-1.3); Estimated Creatinine Clearance 101.1 mL/min (>60); Globulin 2.4 gm/dL (2.3-3.5); Glucose 249 mg/dL (74-106); Lipase 35 U/L (12-53); Osmolality,Calculated 281 (275-295); Potassium 4.1 mMol/L (3.4-5.1); Sodium 137 mMol/L (136-145); Total Protein 7.4 gm/dL (5.7-8.2); eGFR > 60 See Note
[2025-04-02 01:53] LABS: Collection Type, Urine Clean Catch
[2025-04-02 02:04] LABS: HCG Qualitative,Urine Negative
[2025-04-02 02:05] LABS: Bilirubin,Urine Negative (Negative); Blood,Urine Negative (Negative); Clarity,Urine Clear (Clear/Hazy); Color,Urine Yellow (Lt Yel-Yel); Glucose, Urine Trace (Negative); Ketones,Urine Negative (Negative); Leukocyte Esterase,Urine Positive (Negative); Nitrite,Urine Negative (Negative); PH,Urine 5.5 (5.0-7.0); Protein,Urine Trace (Neg - Trace); RBC,Urine 5 /hpf (0-3); Specific Gravity,Urine 1.027 (1.001-1.035); Squamous Epithelial Cell,Urine 5 /hpf (0-5); Urobilinogen,Urine Negative mg/dL (0.0-1.0); WBC,Urine 3 /hpf (0-5)
--- NOTE | 2025-04-02 04:04 | PRELIM_ITS ---
CT scan of the abdomen and pelvis without intravenous contrast (axial sections with sagittal and coronal reformats) April 02, 2025 0258 hours Clinical History: Abdominal pain. Comparison: None available at the time of this report. Findings: The lung bases are clear. The gallbladder, pancreas, spleen, kidneys and adrenals are unremarkable on this noncontrast study. Hepatomegaly. Irregular liver margins. No evidence of bowel obstruction. The appendix is within normal limits. There is no mesenteric or retroperitoneal adenopathy. The urinary bladder is nondistended, limited evaluation. There is no free fluid or free air. The osseous structures are unremarkable. The uterus and ovaries are within normal limits. Impression: Hepatomegaly and cirrhosis. Report Electronically Signed By: Roly Peña 04/02/2025 4:03:59 AM [EST]
[2025-04-02 04:45] VITALS: BP 138/93; PULSE 91; RESP 17; TEMP 36.7; O2SAT 97
--- NOTE | 2025-06-30 08:00 | EDNOTE_ITS ---
ED Abdominal Pain RME/HPI General Chief Complaint: Abdominal Pain Stated complaint: CYST IS HURTING Time seen by provider: 04/02/25 00:08 Arrival date/time: 04/01/25 23:37 This is a case of 34-year-old female with history of ovarian cyst came into the emergency room due to abdominal pain on and off for 2 days associated with nausea but no vomiting no constipation no diarrhea no blood in stool Limitations: no limitations Related Data Home Medications ?Medication ?Instructions ?Recorded ?Confirmed amlodipine 5 mg tablet 5 mg PO DAILY High Blood Pre ssure 01/02/20 01/02/20 clindamycin HCl 300 mg capsule 300 mg PO BID yeast inf ection 01/02/20 01/02/20 loratadine 10 mg capsule 10 mg PO QDAY 01/02/2001/01 metformin 1,000 mg tablet 1,000 mg PO BID 01/02/2004/12 Previous Rx's ?Medication ?Instructions ?Recorded pseudoephedrine HCl 30 mg tablet 30 mg PO Q6H #20 tabs 01/28/21 cephalexin 500 mg capsule 500 mg PO QID #28 caps 06/07 acetaminophen 500 mg tablet 1,000 mg (2 x 500 mg) PO Q 6H PRN 05/06/24 (Tylenol Extra Strength) pain #30 tabs ibuprofen 600 mg tablet 600 mg PO Q6H PRN pain #30 t abs 05/06/24 ondansetron 4 mg disintegrating 4 mg PO Q6H PRN nausea and 05/06/24 tablet vomiting #10 tabs ibuprofen 800 mg tablet 800 mg PO Q6H PRN pain #14 t abs 10/03/24 amlodipine 5 mg tablet 5 mg PO QDAY #14 tabs dicyclomine 20 mg tablet 20 mg PO TID PRN abdominal p ain 04/02/25 #30 tabs ondansetron 4 mg disintegrating 4 mg PO Q8H #20 tabs 1 06/02/24 tablet Allergies Allergy/AdvReac Type Severity Reaction Status Date / Time No Known Allergies Allergy Verified 05/01/25 16:40 Review of Systems Review of Systems Systems Reviewed: All systems reviewed, normal except as documented Past Medical History Past Medical History NEUROLOGIC: Negative Neurological Disorders CARDIAC: Positive Cardiac Disorders and Hypertension; Negative Congestive Heart Failure RESPIRATORY: Negative Chronic Obstructive Pulmonary Disease (COPD) GASTROINTESTINAL: Negative Gastrointestinal Disorders or Hepatitis GENITOURINARY: Negative Genitourinary Disorders or Renal Disease REPRODUCTIVE: Positive Previous Pregnancies MUSCULOSKELETAL: Negative Musculoskeletal Disorders ENDOCRINE: Positive Endocrine Disorders and Diabetes Mellitus Type 2; Negative Diabetes Mellitus Type 1 HEMATOLOGIC: Negative Blood Disorders OTHER HISTORY: Negative Autoimmune Disease, Blood Transfusions, Anesthesia Reactions, MRSA, VRSA, Vancomycin-Resistant Enterococci, Human Immunodeficiency Virus (HIV), Chicken Pox, Measles, Mumps, Rubella (Bangladeshi Measles), Pertussis, Clostridium Difficile or Cancer Family History FAMILY HISTORY: Negative Family Psychiatric Problems, Family Respiratory Disorders, Family Cardiac Disorders, Family Gastrointestinal Problems, Family Cancer, Family Surgery or Family Anesthesia Reaction Surgical History SURGICAL: Positive Section (x2); Negative Cardiac Surgery, Endocrine Surgery, Thyroidectomy, Ear Surgery, Abdominal Surgery, Nephrectomy, Joint Replacement, Neurologic Surgery or Brain Shunt Social History SMOKING STATUS: Never smoker SECOND HAND EXPOSURE: No SUBSTANCE USE: does not use ED Exam General Limitations: Present no limitations General appearance: Present alert, in no apparent distress and other (Patient is awake alert oriented not in distress nontoxic looking) Head Head exam: Present atraumatic Eye Eye exam: Present normal appearance, PERRL and EOMI ENT ENT exam: Present normal exam, normal oropharynx and mucous membranes moist Neck Neck exam: Present normal inspection, full ROM and trachea midline Chest Chest inspection: Present normal inspection and symmetric chest wall rise Respiratory Respiratory exam: Present normal lung sounds bilaterally Cardiovascular Cardiovascular exam: Present regular rate, normal rhythm and normal heart sounds Abdominal Exam Abdominal exam: Present soft, tenderness (Mild tenderness periumbilical area no CVA tenderness) and normal bowel sounds; Absent distention, guarding, rebound, rigidity, diminished bowel sounds, hyperactive bowel sounds, hypoactive bowel sounds, organomegaly, psoas sign, obturator sign, heel tap sign, Lott's sign, Rovsing's sign, tenderness at McBurney's Point, ascites or hernia Extremities Exam Extremities exam: Present normal inspection and full ROM Back Exam Back exam: Present normal inspection and full ROM Neurological Exam Neurological exam: Present alert, oriented X3 and CN II-XII intact Psychiatric Psychiatric exam: Present normal affect and normal mood Skin Skin exam: Present warm, dry, intact and normal color Course Quality Measures none Orders Category Date Time Status CT abdomen pelvis wo con Stat Exams 04/02/25 00:09 Completed CBC Stat Lab 04/02/25 00:15 Completed Comprehensive Metabolic Panel Stat Lab 04/02/25 00:15 Completed HCG Qualitative,Urine Stat Lab 04/02/25 00:58 Completed Lipase Stat Lab 04/02/25 00:15 Completed Urinalysis Stat Lab 04/02/25 00:58 Completed Vital Signs Vital signs: Vital Signs Temperature 98.9 F 04/02/25 00:02 Pulse Rate 95 04/02/25 00:02 Respiratory Rate 20 04/02/25 00:02 Blood Pressure 127/86 H 04/02/25 00:02 Pulse Oximetry (%) 97 04/02/25 00:02 Oxygen Delivery Method Room Air 04/02/25 00:02 Vital signs stable Abdominal Pain MDM MDM Narrative MDM Narrative:: Patient was discharged with comfortable condition walking with stable gait. Patient verbalized no further complains explained diagnosis and answered patient question. Patient is comfortable with the proposed management plan including the need to follow up with his/her primary care physician and any specialist if applicable Discussed patient for any urgent condition or worsening sx, He/She needed to go to emergency room immediately or call 911. Patient acknowledge the responsibility to follow up as instructed and to monitor her/his symptoms. For any persistence of the symptoms for more than 3-5 days return precaution advised. Discussed the result of the test and was given printed discharge instruction Patient data External records reviewed:: [facility] previous records Clinical information provided by:: patient Social determinants that could affect healthcare access:: none Patient has the following chronic illnesses:: NONE How is presenting disease/condition affected by chronic disease/condition?: no chronic disease Evaluation data The following diagnostics were reviewed and interpreted by me:: lab results and radiology exam(s) Lab and/or radiology exams considered but not ordered:: REVIEWD Interpretation Summary: REVIEWD Medications / Prescriptions Medications or Prescriptions considered but not ordered:: GIVEN Medication administrations:: GIVEN Consultations Consultation(s) initiated? (list below): No Diagnosis Differential diagnosis abdominal pain: abdominal pain Most likely diagnosis given after review of the tests above:: ABDOMINAL PAIN HEPATOMENGALY CIRRHOSIS STABLE Admission Indicated Admission indicated?: not indicated Explain why admission is indicated or not indicated:: NOT INDIOCATED Admission Request Was there a request for admission?: No Admission Attestation Admission request attestation: NOT INDICATED Disposition Plan Disposition Plan: Discharge Discharge Attestation Discharge Attestation: The patient and all family members were given an opportunity to ask questions and understood the discharge instructions. Discharge instructions specifically effects, indications for sooner follow up or return to the emergency department, and the expected course of current diagnosis. Patient condition: Stable Discharge Plan Plan Patient Disposition: HOME (Self Care) Patient condition on transfer: Stable Prescriptions/Referrals Prescriptions/Med Rec: New dicyclomine 20 mg tablet 20 mg PO TID PRN (Reason: abdominal pain) Qty: 30 0RF ondansetron 4 mg tablet,disintegrating 4 mg PO Q8H Qty: 20 0RF No Action pseudoephedrine HCl 30 mg tablet 30 mg PO Q6H Qty: 20 0RF amlodipine 5 mg Tablet 5 mg PO DAILY metformin 1,000 mg Tablet 1,000 mg PO BID loratadine 10 mg Capsule 10 mg PO QDAY clindamycin HCl 300 mg Capsule 300 mg PO BID cephalexin 500 mg capsule 500 mg PO QID Qty: 28 0RF ondansetron 4 mg tablet,disintegrating 4 mg PO Q6H PRN (Reason: nausea and vomiting) Qty: 10 0RF acetaminophen [Tylenol Extra Strength] 500 mg tablet 1,000 mg PO Q6H PRN (Reason: pain) Qty: 30 0RF ibuprofen 600 mg tablet 600 mg PO Q6H PRN (Reason: pain) Qty: 30 0RF ibuprofen 800 mg tablet 800 mg PO Q6H PRN (Reason: pain) Qty: 14 0RF amlodipine 5 mg tablet 5 mg PO QDAY Qty: 14 0RF Referrals: Erick Blackwell FNP [Primary Care Provider] - In 1 week Problem List Clinical Impression: Abdominal pain, Hepatomegaly, Cirrhosis of liver Patient/Caregiver Discharge Instructions Education Materials: Abdominal Pain, ED Cirrhosis Additional Instructions: Follow-up with primary care physician in 2 days for reevaluation and to be referred to service counselor for further evaluation and treatment of hepatomegaly and cirrhosis of the liver worsening symptoms or any emergent concern call 911 or go to the nearest emergency room take your medicatio increase water intake keep hydrated avoid spicy food avoid alcohol soda coffee avoid fatty fried high cholesterol food advised keep hydrated Print Language: Citizen Of [place] Stand Alone Forms: Tabatha Award Info., Patient Portal Info Letter PA/CLOTHES IRONER Supervising Physician NAE/CLOTHES IRONER Supervising Physician: Dr. Nancy Chavarria
== END 2025-04-02 04:54 | disposition home or self-care (01) ==
PROVIDERS: Nurse Practitioner Family; Emergency Provider Emergency Medicine
DX: R10.9 Unspecified abdominal pain (principal); K74.60 Unspecified cirrhosis of liver
CPT/HCPCS: 36415; 74176; 80053; 81001; 81025; 83690; 85025; 99283

== ENCOUNTER 2025-04-16 21:24 | Emergency (ER) | payer MEDICAID, SELFPAY ==
[2025-04-16 21:26] VITALS: BMI 37.8
[2025-04-16 21:34] VITALS: BP 149/95; PULSE 85; RESP 18; TEMP 36.8; O2SAT 99
--- NOTE | 2025-04-16 21:57 | PD.EDADULT ---
ED General RME/HPI General Chief complaint: General Adult/Misc Complain Stated complaint: 4 WKS PREG HIGH BS Time Seen by Provider: 04/16/25 21:30 Arrival date/time: 04/16/25 21:24 34-year-old female with a history of no insulin-dependent diabetes previously on metformin and glipizide is reporting with complaints of elevated blood sugar. Patient states that she is 4 weeks gestation and was advised by her primary care provider to stop all medications until her next visit. Patient states that she has stopped the medications and her glucose has reached as high as 475 yesterday. Patient denies any dizziness blurred vision ringing in ears shortness of breath chest pain nausea vomiting abdominal pain abnormal vaginal bleeding or urinary symptoms but she is concerned for the elevated glucose readings. Patient reports not taking any other medications Related Data Home Medications ?Medication ?Instructions ?Recorded ?Confirmed amlodipine 5 mg tablet 5 mg PO DAILY High Blood Pressure 01/02/20 01/02/20 clindamycin HCl 300 mg capsule 300 mg PO BID yeast infection 01/02/20 01/02/20 loratadine 10 mg capsule 10 mg PO QDAY 01/02/20 01/02/20 metformin 1,000 mg tablet 1,000 mg PO BID 01/02/20 01/02/20 Previous Rx's ?Medication ?Instructions ?Recorded pseudoephedrine HCl 30 mg tablet 30 mg PO Q6H #20 tabs 01/28/21 cephalexin 500 mg capsule 500 mg PO QID #28 caps 06/07/22 acetaminophen 500 mg tablet 1,000 mg (2 x 500 mg) PO Q6H PRN 05/06/24 (Tylenol Extra Strength) pain #30 tabs ibuprofen 600 mg tablet 600 mg PO Q6H PRN pain #30 tabs 05/06/24 ondansetron 4 mg disintegrating 4 mg PO Q6H PRN nausea and 05/06/24 tablet vomiting #10 tabs ibuprofen 800 mg tablet 800 mg PO Q6H PRN pain #14 tabs 10/03/24 amlodipine 5 mg tablet 5 mg PO QDAY #14 tabs 12/24/24 dicyclomine 20 mg tablet 20 mg PO TID PRN abdominal pain 04/02/25 #30 tabs ondansetron 4 mg disintegrating 4 mg PO Q8H #20 tabs 04/02/25 tablet Allergies Allergy/AdvReac Type Severity Reaction Status Date / Time No Known Allergies Allergy Verified 04/16/25 21:30 Course Course Course Narrative: 34-year-old female with a history of yot-lwreojf-gansxolbj diabetes reports with complaint of elevated blood glucose after being pulled off of medications by PCP. Patient's hemoglobin A1c is pending and her blood glucose is 312. She is currently asymptomatic and reported only out of concern for elevated readings. Consulted with Dr Finch, [facility] who advised that the patient should continue the metformin and glipizide as directed and to follow-up in her office for further evaluation and treatment. Patient is currently stable nontoxic-appearing with stable vital signs and will be discharged and referred as planned. Pt verbalized understanding Quality Measures none Orders Category Date Time Status Glucose [Bedside Blood Glucose] NOW Care 04/16/25 21:49 Active HCG,Qualitative Serum Stat Lab 04/16/25 22:19 Received Hemoglobin A1C [Glycohemoglobin w (eAG)] Stat Lab 04/16/25 22:19 Received Vital Signs Vital signs: Vital Signs Temperature 98.2 F 04/16/25 21:34 Pulse Rate 85 04/16/25 21:34 Respiratory Rate 18 04/16/25 21:34 Blood Pressure 149/95 H 04/16/25 21:34 Pulse Oximetry (%) 99 04/16/25 21:34 Oxygen Delivery Method Room Air 04/16/25 21:34 Discharge Plan Plan Patient Disposition: HOME (Self Care) Prescriptions/Referrals Prescriptions/Med Rec: No Action pseudoephedrine HCl 30 mg tablet 30 mg PO Q6H Qty: 20 0RF amlodipine 5 mg Tablet 5 mg PO DAILY metformin 1,000 mg Tablet 1,000 mg PO BID loratadine 10 mg Capsule 10 mg PO QDAY clindamycin HCl 300 mg Capsule 300 mg PO BID cephalexin 500 mg capsule 500 mg PO QID Qty: 28 0RF ondansetron 4 mg tablet,disintegrating 4 mg PO Q6H PRN (Reason: nausea and vomiting) Qty: 10 0RF acetaminophen [Tylenol Extra Strength] 500 mg tablet 1,000 mg PO Q6H PRN (Reason: pain) Qty: 30 0RF ibuprofen 600 mg tablet 600 mg PO Q6H PRN (Reason: pain) Qty: 30 0RF ibuprofen 800 mg tablet 800 mg PO Q6H PRN (Reason: pain) Qty: 14 0RF amlodipine 5 mg tablet 5 mg PO QDAY Qty: 14 0RF dicyclomine 20 mg tablet 20 mg PO TID PRN (Reason: abdominal pain) Qty: 30 0RF ondansetron 4 mg tablet,disintegrating 4 mg PO Q8H Qty: 20 0RF Referrals: [facility] ([facility]),Brianna Fisher MD [Physician, [facility] [facility]] - 04/17/25 Problem List Clinical Impression: Diabetes mellitus, Patient/Caregiver Discharge Instructions Education Materials: Taking Medicine for Diabetes Additional Instructions: Restart your diabetes medication and hydrate well follow-up with [facility]PA[facility] tomorrow for an appointment Print Language: Maldivian Stand Alone Forms: Tabatha Award Info., Patient Portal Info Letter
[2025-04-16 22:24] VITALS: PULSE 136; TEMP 37.3; O2SAT 99
[2025-04-16 22:53] LABS: HCG,Qualitative Serum Positive
[2025-04-16 23:02] LABS: Glucose Estimated Average 197 mg/dL (80-131); Hemoglobin A1C 8.5 % Hgb (4.8-6.0)
== END 2025-04-16 23:12 | disposition home or self-care (01) ==
PROVIDERS: Physician Assistant; Emergency Provider Emergency Medicine
DX: O24.111 Pre-existing type 2 diabetes mellitus, in pregnancy, first trimester (principal); Z79.84 Long term (current) use of oral hypoglycemic drugs; Z3A.01 Less than 8 weeks gestation of pregnancy
CPT/HCPCS: 36415; 83036; 84703; 99282

== ENCOUNTER 2025-05-01 16:38 | Emergency (ER) | payer MEDICAID, SELFPAY ==
[2025-05-01 16:40] VITALS: BMI 37.8
[2025-05-01 17:14] VITALS: BP 146/97; PULSE 80; RESP 18; TEMP 36.8; O2SAT 99; BMI 36.6
--- NOTE | 2025-05-01 17:24 | EKG_ITS ---
[facility] Test Date: 2025-05-01 Pat Name: LIANA DNAIEL Department: Room: - Gender: Female Machine Welder: : 1990 Requested By: Ailyn Black Order Number: [id number] Reading MD: Ailyn Black Measurements Intervals [place] Rate: 83 P: 39 AR: 125 QRS: -5 QRSD: 92 T: 29 QT: 361 QTc: 425 Interpretive Statements SINUS RHYTHM Compared to ECG 12/24/2024 06:27:56 Left-axis deviation no longer present Myocardial infarct finding no longer present /store/S0/[id number]/ecg/[id number]
--- NOTE | 2025-05-01 17:25 | PD.EDRME ---
Rapid Medical Screening Exam RME Arrival date/time: 05/01/25 16:38 This is a case of 34-year-old female with history of diabetes and hypertension came in in the emergency room due to high blood sugar 333 and high blood pressure with chest pain and persistence of the symptoms this patient decided to sought consult here in the ER Chief Complaint: General Adult/Misc Complain Time Seen by Provider: 05/01/25 17:24 Vital signs: Vital Signs Temperature 98.3 F 05/01/25 17:14 Pulse Rate 80 05/01/25 17:14 Respiratory Rate 18 05/01/25 17:14 Blood Pressure 146/97 H 05/01/25 17:14 Pulse Oximetry (%) 99 05/01/25 17:14 Oxygen Delivery Method Room Air 05/01/25 17:14 Exam: Normal rate regular rhythm no murmur no pitting edema clear breath Clinical Impression: Chest pain
[2025-05-01 17:35] LABS: Base Excess, Venous -2 (-3-3); O2 Saturation, Venous 46 % (96-97); PCO2, Venous 41 mmHg (36-56); PO2, Venous 26 mmHg (15-58); pH, Venous 7.37 (7.33-7.66)
[2025-05-01 17:36] LABS: Basophils # (Auto) 0.1 Thou/mm3 (0.0-0.2); Basophils % (Auto) 1 % (0-2.5); Eosinophils # (Auto) 0.1 Thou/mm3 (0.0-0.5); Eosinophils % (Auto) 1 % (0-10); Hematocrit 37.3 % (36.0-46.0); Hemoglobin 12.7 g/dL (12.0-16.0); Immature Granulocytes Auto 0.04 Thou/mm3 (0.00-0.00); Lymphocytes # (Auto) 3.9 Thou/mm3 (1.0-4.8); Lymphocytes % (Auto) 29 % (10-50); Mean Corpuscular HGB Conc 34.0 g/dl (31.0-37.0); Mean Corpuscular Hemoglobin 29.9 pg (25.0-35.0); Mean Corpuscular Volume 88 fL (80-100); Monocytes # (Auto) 0.8 Thou/mm3 (0.0-0.8); Monocytes % (Auto) 6 % (0-12); Neutrophils # (Auto) 8.6 Thou/mm3 (1.8-7.7); Neutrophils % (Auto) 64 % (37-80); Nucleated Red Blood Cell # 0.00 Thou/mm3 (0.00-0.00); Nucleated Red Blood Cell % 0 /100 WBC (0); Platelet Count 410 Thou/mm3 (140-440); RDW Standard Deviation 43.9 fL (36.4-46.3); Red Blood Count 4.25 Miln/mm3 (4.00-5.20); White Blood Count 13.5 Thou/mm3 (3.6-11.0)
[2025-05-01 17:56] LABS: B-Type Natriuretic Peptide < 20 pg/mL (0-100)
[2025-05-01 18:01] LABS: Alanine Aminotransferase 21 U/L (10-49); Albumin, Serum 4.9 gm/dL (3.5-5.0); Albumin/Globulin Ratio 1.6 (1.2-2.2); Alkaline Phosphatase 39 U/L (46-116); Anion Gap 11 (7-16); Aspartate Amino Transferase 17 U/L (0-34); BUN/Creatinine Ratio 10 Ratio (12-20); Bilirubin,Total 0.4 mg/dL (0.3-1.2); Blood Urea Nitrogen 8 mg/dL (9-23); Calcium 9.8 mg/dL (8.3-10.6); Calcium (Corrected) 9.8 mg/dL (8.5-10.1); Carbon Dioxide 22.6 mMol/L (20.0-31.0); Chloride 104 mMol/L (98-107); Creatinine (Component) 0.8 mg/dL (0.6-1.3); Estimated Creatinine Clearance 111.8 mL/min (>60); Globulin 3.0 gm/dL (2.3-3.5); Glucose 253 mg/dL (74-106); Osmolality,Calculated 282 (275-295); Potassium 3.9 mMol/L (3.4-5.1); Sodium 138 mMol/L (136-145); Thyroid Stimulating Hormone 1.31 uIU/mL (0.55-4.78); Total Protein 7.9 gm/dL (5.7-8.2); Troponin I < 0.002 ng/mL (0.0-0.045); eGFR > 60 See Note
--- NOTE | 2025-05-01 18:03 | XR_ITS ---
Examination: Complete OB ultrasound, less than 14 weeks, transabdominal Date and time of exam: May 01, 2025, 1811 hours INDICATIONS: Onset pelvic pain today Technique: Obstetrical ultrasound images less than 14 weeks performed via transabdominal imaging Findings: Uterus 10.9 cm, intrauterine gestational sac 0.6 cm corresponds to 5 weeks 2 days gestational age No pole, no cardiac activity Absent right ovary Left ovary 3.7 cm arterial flow IMPRESSION: Empty intrauterine gestational sac corresponding to 5 weeks 2 days gestational age No pole, no cardiac activity Consider transvaginal pelvic sonography follow-up
[2025-05-01 18:22] LABS: Collection Type, Urine Voided
[2025-05-01 18:40] LABS: Bilirubin,Urine Negative (Negative); Blood,Urine Negative (Negative); Clarity,Urine Clear (Clear/Hazy); Color,Urine Colorless (Lt Yel-Yel); Glucose, Urine 4+ (Negative); Ketones,Urine Negative (Negative); Leukocyte Esterase,Urine Negative (Negative); Nitrite,Urine Negative (Negative); PH,Urine 6.0 (5.0-7.0); Protein,Urine Negative (Neg - Trace); RBC,Urine 1 /hpf (0-3); Specific Gravity,Urine 1.013 (1.001-1.035); Squamous Epithelial Cell,Urine 4 /hpf (0-5); Urobilinogen,Urine Negative mg/dL (0.0-1.0); WBC,Urine 5 /hpf (0-5)
[2025-05-01 18:41] LABS: HCG Qualitative,Urine Positive
[2025-05-01 18:46] LABS: Beta Hydroxybutyrate 0.2 mmol/L (<0.6)
[2025-05-01] MEDS: SODIUM CHLORIDE 0.9% 1000 ML 1,000 ML 999 ML IV (20:08)
[2025-05-01 21:17] LABS: Beta HCG,Quantitative 4159 mIU/mL (<5.0)
--- NOTE | 2025-05-01 22:26 | EDNOTE_ITS ---
ED Chest Pain RME/HPI General Chief Complaint: General Adult/Misc Complain Stated Complaint: HTN, FSBS 330, 7 WEEKS PREG Time Seen by Provider: 05/01/25 17:24 Arrival date/time: 05/01/25 16:38 This is a case of 34-year-old female with history of diabetes and hypertension came in in the emergency room due to chest pain today midsternal into location nonradiating no shortness of breath no palpitation patient states that her blood sugar at home was 330 and his blood pressure at home is 148/98 patient is 7 weeks 3 para 2 no checkup. Patient denies any vaginal bleeding vaginal discharge vaginal spotting denies any abdominal pain nausea vomiting denies any fever or chills persistence of the symptoms this patient decided to sought consult here in the emergency room Limitations: no limitations RME / HPI RME / HPI narrative: 05/01/25 16:38 This is a case of 34-year-old female with history of diabetes and hypertension came in in the emergency room due to high blood sugar 333 and high blood pressure with chest pain and persistence of the symptoms this patient decided to sought consult here in the ER Exam: Normal rate regular rhythm no murmur no pitting edema clear breath Impression: Chest pain Related Data Home Medications ?Medication ?Instructions ?Recorded ?Confirmed amlodipine 5 mg tablet 5 mg PO DAILY High Blood Pre ssure 01/02/20 01/02/20 clindamycin HCl 300 mg capsule 300 mg PO BID yeast inf ection 01/02/20 01/02/20 loratadine 10 mg capsule 10 mg PO QDAY 01/02/2001/01 metformin 1,000 mg tablet 1,000 mg PO BID 01/02/2004/12 Previous Rx's ?Medication ?Instructions ?Recorded pseudoephedrine HCl 30 mg tablet 30 mg PO Q6H #20 tabs 01/28/21 cephalexin 500 mg capsule 500 mg PO QID #28 caps 06/07 acetaminophen 500 mg tablet 1,000 mg (2 x 500 mg) PO Q 6H PRN 05/06/24 (Tylenol Extra Strength) pain #30 tabs ibuprofen 600 mg tablet 600 mg PO Q6H PRN pain #30 t abs 05/06/24 ondansetron 4 mg disintegrating 4 mg PO Q6H PRN nausea and 05/06/24 tablet vomiting #10 tabs ibuprofen 800 mg tablet 800 mg PO Q6H PRN pain #14 t abs 10/03/24 amlodipine 5 mg tablet 5 mg PO QDAY #14 tabs dicyclomine 20 mg tablet 20 mg PO TID PRN abdominal p ain 04/02/25 #30 tabs ondansetron 4 mg disintegrating 4 mg PO Q8H #20 tabs 1 06/02/24 tablet Allergies Allergy/AdvReac Type Severity Reaction Status Date / Time No Known Allergies Allergy Verified 05/01/25 16:40 Review of Systems Review of Systems Systems Reviewed: All systems reviewed, normal except as documented Constitutional Constitutional: Reports system reviewed and no additional complaints, except as documented and Reports as per HPI Cardiovascular Cardiovascular: Reports system reviewed and no additional complaints, except as documented and Reports as per HPI Respiratory Respiratory: Reports system reviewed and no additional complaints, except as documented and Reports as per HPI Gastrointestinal Gastrointestinal: Reports system reviewed and no additional complaints, except as documented and Reports as per HPI Neurologic Neurologic: Reports system reviewed and no additional complaints, except as documented and Reports as per HPI Past Medical History Past Medical History NEUROLOGIC: Negative Neurological Disorders CARDIAC: Positive Cardiac Disorders and Hypertension; Negative Congestive Heart Failure RESPIRATORY: Negative Chronic Obstructive Pulmonary Disease (COPD) GASTROINTESTINAL: Negative Gastrointestinal Disorders or Hepatitis GENITOURINARY: Negative Genitourinary Disorders or Renal Disease REPRODUCTIVE: Positive Previous Pregnancies MUSCULOSKELETAL: Negative Musculoskeletal Disorders ENDOCRINE: Positive Endocrine Disorders and Diabetes Mellitus Type 2; Negative Diabetes Mellitus Type 1 HEMATOLOGIC: Negative Blood Disorders OTHER HISTORY: Negative Autoimmune Disease, Blood Transfusions, Anesthesia Reactions, MRSA, VRSA, Vancomycin-Resistant Enterococci, Human Immunodeficiency Virus (HIV), Chicken Pox, Measles, Mumps, Rubella (Telugu Measles), Pertussis, Clostridium Difficile or Cancer Family History FAMILY HISTORY: Negative Family Psychiatric Problems, Family Respiratory Disorders, Family Cardiac Disorders, Family Gastrointestinal Problems, Family Cancer, Family Surgery or Family Anesthesia Reaction Surgical History SURGICAL: Positive Section (x2); Negative Cardiac Surgery, Endocrine Surgery, Thyroidectomy, Ear Surgery, Abdominal Surgery, Nephrectomy, Joint Replacement, Neurologic Surgery or Brain Shunt Social History SMOKING STATUS: Never smoker SECOND HAND EXPOSURE: No SUBSTANCE USE: does not use ED Exam General Limitations: Present no limitations General appearance: Present alert, in no apparent distress and other (Patient is awake alert oriented not in distress nontoxic looking well-hydrated well- nourished) Head Head exam: Present atraumatic, normocephalic and normal inspection Eye Eye exam: Present normal appearance, PERRL and EOMI ENT ENT exam: Present normal exam, normal oropharynx and mucous membranes moist Neck Neck exam: Present normal inspection, full ROM, trachea midline and other (Negative for meningeal sign); Absent tenderness, meningismus, lymphadenopathy or thyromegaly Chest Chest inspection: Present normal inspection and symmetric chest wall rise; Absent tenderness Respiratory Respiratory exam: Present normal lung sounds bilaterally and other; Absent respiratory distress, wheezes, stridor, accessory muscle use or prolonged expiratory phase Cardiovascular Cardiovascular exam: Present regular rate, normal rhythm, normal heart sounds and other (No pitting edema); Absent bradycardia, tachycardia, irregular rhythm, systolic murmur or diastolic murmur Abdominal Exam Abdominal exam: Present soft, normal bowel sounds and other (Gravid uterus); Absent distention, tenderness, guarding, rebound, rigidity, diminished bowel sounds, hyperactive bowel sounds, hypoactive bowel sounds or organomegaly Extremities Exam Extremities exam: Present normal inspection and full ROM Back Exam Back exam: Present normal inspection and full ROM Neurological Exam Neurological exam: Present alert, oriented X3, CN II-XII intact, normal gait and reflexes normal; Absent motor sensory deficit Psychiatric Psychiatric exam: Present normal affect and normal mood Skin Skin exam: Present warm, dry, intact, normal color and other (Excellent skin turgor) Course Quality Measures none Orders Category Date Time Status EKG (ED ONLY) *Do not use* NOW Care 05/01/25 17:24 Completed EKG (ED Only) Stat Exams 05/01/25 17:24 Draft US OB <= 14 weeks fetus Stat Exams 05/01/25 18:03 Completed BNP [B-Type Natriuretic Peptide] Stat Lab 05/01/25 17:30 Completed Beta HCG,Quantitative Stat Lab 05/01/25 17:30 Completed Beta Hydroxybutyrate Stat Lab 05/01/25 18:27 Completed CBC Stat Lab 05/01/25 17:30 Completed CMP [Comprehensive Metabolic Panel] Stat Lab 05/01/25 17:30 Completed HCG Qualitative,Urine Stat Lab 05/01/25 18:19 Completed TSH [Thyroid Stimulating Hormone] Stat Lab 05/01/25 17:30 Completed Troponin I Stat Lab 05/01/25 17:30 Completed Urinalysis Stat Lab 05/01/25 18:19 Completed Venous Blood Gas Stat Lab 05/01/25 17:30 Completed Sodium Chloride 0.9% 1000 ml [Ns] 1,000 ml Med 05/01/25 18:39 Discontinued IV 999 mls/hr Vital Signs Vital signs: Vital Signs Temperature 98.3 F 05/01/25 17:14 Pulse Rate 80 05/01/25 17:14 Respiratory Rate 18 05/01/25 17:14 Blood Pressure 146/97 H 05/01/25 17:14 Pulse Oximetry (%) 99 05/01/25 17:14 Oxygen Delivery Method Room Air 05/01/25 17:14 Oxygen saturation is 99% in room air Chest Pain MDM Narrative MDM Narrative:: This is a case of 34-year-old female with history of diabetes and hypertension came in in the emergency room due to chest pain today midsternal into location nonradiating no shortness of breath no palpitation patient states that her blood sugar at home was 330 and his blood pressure at home is 148/98 patient is 7 weeks 3 para 2 no checkup. Patient denies any vaginal bleeding vaginal discharge vaginal spotting denies any abdominal pain nausea vomiting denies any fever or chills persistence of the symptoms this patient decided to sought consult here in the emergency room physical examination patient is awake alert oriented not in distress nontoxic looking well-hydrated well-nourished vital signs stable BP stable not tachycardic not tachypneic afebrile and nonhypoxic patient BP is 146/97 initially when we rechecked it it noted to be 125/80 patient excellent skin turgor heart sounds normal rate regular rhythm no murmur no pitting edema clear breath sounds and equal no crackles no wheezing no retraction no stridor abdominal exam gravid uterus no no tenderness normal active bowel sounds no guarding no rebound no rigidity neurological exam is normal patient blood test showed no leukocytosis no anemia kidney and liver function is normal no electrolyte imbalance patient troponin is negative EKG is sinus rhythm patient urinalysis is normal beta-hCG show 4159 pelvic ultrasound showed no intrauterine patient blood sugar showed 253 a bolus of normal saline was given and anion gap is normal beta hydroxybutyrate is normal venous blood gas is also normal thus patient is not having DKA at the time of exam I do not think patient chest pain is not cardiopulmonary in pathology patient condition markedly improved after hydration I spoke to Dr. Finch INBOUND CUSTOMER SERVICE AGENT he called discussed patient condition history and physical physical exam at this point there is no indication to admit or transfer the patient patient will follow-up in 1 week for reevaluation and to have repeat beta-hCG and pelvic ultrasound to rule out ectopic early or spontaneous she is also advised to see an OB building illuminating engineer as soon as possible for high risk she will continue his diabetic medication and blood pressure medication and for any worsening symptoms or any emergent concern return precaution in the ER is advised she was also advised to monitor his blood sugar and blood pressure and continue medication for any vaginal bleeding vaginal discharge vaginal spotting return immediately in the emergency room was at the Patient was discharged with comfortable condition walking with stable gait. Patient verbalized no further complains explained diagnosis and answered patient question. Patient is comfortable with the proposed management plan including the need to follow up with his/her primary care physician and any specialist if applicable Discussed patient for any urgent condition or worsening sx, He/She needed to go to emergency room immediately or call 911. Patient acknowledge the responsibility to follow up as instructed and to monitor her/his symptoms. For any persistence of the symptoms for more than 3-5 days return precaution advis ed. Discussed the result of the test and was given printed discharge instruction Patient data External records reviewed:: [facility] previous records Clinical information provided by:: patient Social determinants that could affect healthcare access:: none Patient has the following chronic illnesses:: None How is presenting disease/condition affected by chronic disease/condition?: no chronic disease Evaluation data The following diagnostics were reviewed and interpreted by me:: lab results, radiology exam(s) and EKG tracing(s) Lab and/or radiology exams considered but not ordered:: Reviewed Interpretation Summary: Reviewed Medications / Prescriptions Medications or Prescriptions considered but not ordered:: Given Medication administrations:: Medication Administration History Discontinued Medications Sodium Chloride (Ns) 1,000 mls @ 999 mls/hr IV .Q1H1M ONE Stop: 05/01/25 19:39 Last Infusion: 05/01/25 20:55 Dose: Infused Documented By: Admin: 05/01/25 20:08 Dose: 999 mls/hr Documented By: Given Consultations Consultation(s) initiated? (list below): No Diagnosis Chest Pain Differential Diagnosis: atypical chest pain, costochondritis and chest pain Most likely diagnosis given after review of the tests above:: Chest pain of unknown etiology Admission Indicated Admission indicated?: not indicated Explain why admission is indicated or not indicated:: Not indicated Admission Request Was there a request for admission?: No Admission Attestation Admission request attestation: Not indicated Disposition Plan Disposition Plan: Discharge Discharge Attestation Discharge Attestation: The patient and all family members were given an opportunity to ask questions and understood the discharge instructions. Discharge instructions specifically effects, indications for sooner follow up or return to the emergency department, and the expected course of current diagnosis. Patient condition: Stable Discharge Plan Plan Patient Disposition: HOME (Self Care) Patient condition on transfer: Stable Prescriptions/Referrals Prescriptions/Med Rec: No Action pseudoephedrine HCl 30 mg tablet 30 mg PO Q6H Qty: 20 0RF amlodipine 5 mg Tablet 5 mg PO DAILY metformin 1,000 mg Tablet 1,000 mg PO BID loratadine 10 mg Capsule 10 mg PO QDAY clindamycin HCl 300 mg Capsule 300 mg PO BID cephalexin 500 mg capsule 500 mg PO QID Qty: 28 0RF ondansetron 4 mg tablet,disintegrating 4 mg PO Q6H PRN (Reason: nausea and vomiting) Qty: 10 0RF acetaminophen [Tylenol Extra Strength] 500 mg tablet 1,000 mg PO Q6H PRN (Reason: pain) Qty: 30 0RF ibuprofen 600 mg tablet 600 mg PO Q6H PRN (Reason: pain) Qty: 30 0RF ibuprofen 800 mg tablet 800 mg PO Q6H PRN (Reason: pain) Qty: 14 0RF amlodipine 5 mg tablet 5 mg PO QDAY Qty: 14 0RF dicyclomine 20 mg tablet 20 mg PO TID PRN (Reason: abdominal pain) Qty: 30 0RF ondansetron 4 mg tablet,disintegrating 4 mg PO Q8H Qty: 20 0RF Referrals: [facility] ([facility])Brianna MD [Physician, INBOUND CUSTOMER SERVICE AGENT] - 05/02/25 Referral Note: For further evaluation and treatment of your high risk and for check up Erick Blackwell FNP-C [Primary Care Provider] - In 1 week Problem List Clinical Impression: Chest pain of unknown etiology, Hyperglycemia, Hypertension, uncontrolled, First trimester Patient/Caregiver Discharge Instructions Education Materials: High Blood Sugar (Hyperglycemia), First Trimester, ED Chest Pain, Uncertain Cause, ED Hypertension, Established Additional Instructions: It is very important to see an OB building illuminating engineer in 2 days for reevaluation and for your high risk and for your checkup it is also important to return in the emergency room in 1 week for repeat pelvic ultrasound and beta- hCG to rule out ectopic early or spontaneous follow-up with your primary care physician in 2 days for reevaluation and to monitor your blood sugar and blood pressure continue to take your blood pressure medication and your blood sugar medical if your blood sugar greater than 250 or less than 80 or your blood pressure greater than 160/100 or become symptomatic return to the emergency room immediately or call 911 it is very important to be referred to glass inserter for further evaluation and treatment of your chest pain for possible echocardiogram and Holter monitor for any recurrence persistent worsening symptoms or any emergent concern call 911 or go to the nearest emergency room cardiac diet and diabetic diet as advised Print Language: Citizen Of [place] Stand Alone Forms: Tabatha Award Info., Patient Portal Info Letter NAE/MODESTO Supervising Physician NAE/MODESTO Supervising Physician: dr ravi
== END 2025-05-02 02:26 | disposition home or self-care (01) ==
PROVIDERS: Nurse Practitioner Family; Emergency Provider Emergency Medicine
DX: O10.911 Unspecified pre-existing hypertension complicating pregnancy, first trimester (principal); O24.111 Pre-existing type 2 diabetes mellitus, in pregnancy, first trimester; E11.65 Type 2 diabetes mellitus with hyperglycemia; O99.891 Other specified diseases and conditions complicating pregnancy; R10.20 Pelvic and perineal pain unspecified side; R07.9 Chest pain, unspecified; Z3A.01 Less than 8 weeks gestation of pregnancy; Z79.84 Long term (current) use of oral hypoglycemic drugs
CPT/HCPCS: 36415; 76801; 80053; 81001; 81025; 82010; 82803; 83880; 84443; 84484; 84702; 85025; 93005; 96360; 99283; J7030

== ENCOUNTER → 2025-05-09 | Outpatient (CLI) | payer MEDICAID, SELFPAY ==
--- NOTE | 2025-05-09 15:15 | XR_ITS ---
Examination: OB Transvaginal ultrasound of the pelvis, complete Technique: Transvaginal sonographic images pelvis performed using tapia scale imaging Exam date and time: May 09, 2025, 1749 hours INDICATIONS: Ultrasound May 01, 2025 empty intrauterine gestational sac FINDINGS: Uterus 9.8 cm Intrauterine gestational sac 1.1 cm corresponds to 5 weeks 6 days gestational age No pole No cardiac activity Absent right ovary Left ovary 3.4 cm arterial flow IMPRESSION: Empty intrauterine gestational sac, recommend continued follow-up to exclude demise
[2025-05-09 17:45] LABS: Beta HCG,Quantitative 4740 mIU/mL (<5.0)
== END | disposition home or self-care (01) ==
LOC: CDIM 15:13 → COPL 16:12
DX: O36.80X0 Pregnancy with inconclusive fetal viability, not applicable or unspecified (principal); Z3A.01 Less than 8 weeks gestation of pregnancy
CPT/HCPCS: 36415; 76817; 84702

== ENCOUNTER 2025-05-22 21:33 | Emergency (ER) | payer MEDICAID, SELFPAY ==
[2025-05-22 21:34] VITALS: BMI 36.0
[2025-05-22 22:13] VITALS: BP 117/80; PULSE 87; RESP 20; TEMP 37.2; O2SAT 98
--- NOTE | 2025-05-22 22:18 | XR_ITS ---
Examination: OB Transvaginal ultrasound of the pelvis, complete Technique: Transvaginal sonographic images pelvis performed using tapia scale imaging Exam date and time: May 22, 2025, 1127 hours INDICATIONS: Vaginal bleeding beginning 1 week ago, large blood clots today FINDINGS: Uterus 9.4 cm Empty intrauterine gestational sac corresponding to 5 weeks 5 days gestational age Subchorionic hemorrhage 8 x 6 x 8 mm Right ovary removed 2013 Left ovary 3.4 x 3.2 cm arterial flow 15 mm follicular cyst IMPRESSION: Empty intrauterine gestational sac corresponding to 5 weeks 5 days gestational age Recommend short-term follow-up pelvic sonography to assess for viable fetus.
--- NOTE | 2025-05-22 22:20 | EDNOTE_ITS ---
ED OB Contraction Preg RMI/HPI General Chief complaint: Vaginal Bleeding Stated complaint: VAG BLEEDING / MISCARRIAGE 05/17 9WKS Time Seen by Provider: 05/22/25 22:17 Arrival date/time: 05/22/25 21:33 34F with history of DM and gestational HTN presents to ED with worsening vaginal bleeding after finding out she was having a miscarriage at [facility]. Bleeding was pretty stable until yesterday, when it got worse. Patient was discharged with conservative treatment. Limitations: no limitations Related Data Home Medications ?Medication ?Instructions ?Recorded ?Confirmed amlodipine 5 mg tablet 5 mg PO DAILY High Blood Pre ssure 01/02/20 01/02/20 clindamycin HCl 300 mg capsule 300 mg PO BID yeast inf ection 01/02/20 01/02/20 loratadine 10 mg capsule 10 mg PO QDAY 01/02/2001/01 metformin 1,000 mg tablet 1,000 mg PO BID 01/02/2004/12 Previous Rx's ?Medication ?Instructions ?Recorded pseudoephedrine HCl 30 mg tablet 30 mg PO Q6H #20 tabs 01/28/21 cephalexin 500 mg capsule 500 mg PO QID #28 caps 06/07 acetaminophen 500 mg tablet 1,000 mg (2 x 500 mg) PO Q 6H PRN 05/06/24 (Tylenol Extra Strength) pain #30 tabs ibuprofen 600 mg tablet 600 mg PO Q6H PRN pain #30 t abs 05/06/24 ondansetron 4 mg disintegrating 4 mg PO Q6H PRN nausea and 05/06/24 tablet vomiting #10 tabs ibuprofen 800 mg tablet 800 mg PO Q6H PRN pain #14 t abs 10/03/24 amlodipine 5 mg tablet 5 mg PO QDAY #14 tabs dicyclomine 20 mg tablet 20 mg PO TID PRN abdominal p ain 04/02/25 #30 tabs ondansetron 4 mg disintegrating 4 mg PO Q8H #20 tabs 1 06/02/24 tablet Allergies Allergy/AdvReac Type Severity Reaction Status Date / Time No Known Allergies Allergy Verified 05/01/25 16:40 Review of Systems Review of Systems Systems Reviewed: All systems reviewed, normal except as documented Genitourinary Genitourinary: Reports as per HPI and Reports abnormal vaginal bleeding Past Medical History Past Medical History NEUROLOGIC: Negative Neurological Disorders CARDIAC: Positive Cardiac Disorders and Hypertension; Negative Congestive Heart Failure RESPIRATORY: Negative Chronic Obstructive Pulmonary Disease (COPD) GASTROINTESTINAL: Negative Gastrointestinal Disorders or Hepatitis GENITOURINARY: Negative Genitourinary Disorders or Renal Disease REPRODUCTIVE: Positive Previous Pregnancies MUSCULOSKELETAL: Negative Musculoskeletal Disorders ENDOCRINE: Positive Endocrine Disorders and Diabetes Mellitus Type 2; Negative Diabetes Mellitus Type 1 HEMATOLOGIC: Negative Blood Disorders OTHER HISTORY: Negative Autoimmune Disease, Blood Transfusions, Anesthesia Reactions, MRSA, VRSA, Vancomycin-Resistant Enterococci, Human Immunodeficiency Virus (HIV), Chicken Pox, Measles, Mumps, Rubella (Armenian Measles), Pertussis, Clostridium Difficile or Cancer Family History FAMILY HISTORY: Negative Family Psychiatric Problems, Family Respiratory Disorders, Family Cardiac Disorders, Family Gastrointestinal Problems, Family Cancer, Family Surgery or Family Anesthesia Reaction Surgical History SURGICAL: Positive Section (x2); Negative Cardiac Surgery, Endocrine Surgery, Thyroidectomy, Ear Surgery, Abdominal Surgery, Nephrectomy, Joint Replacement, Neurologic Surgery or Brain Shunt Social History SMOKING STATUS: Never smoker SECOND HAND EXPOSURE: No SUBSTANCE USE: does not use ED Exam General Limitations: Present no limitations General appearance: Present alert and in no apparent distress Head Head exam: Present atraumatic Neck Neck exam: Present normal inspection, full ROM and trachea midline Chest Chest inspection: Present normal inspection and symmetric chest wall rise Neurological Exam Neurological exam: Present alert and oriented X3 Psychiatric Psychiatric exam: Present normal affect and normal mood Skin Skin exam: Present warm, dry, intact and normal color Course Quality Measures none Orders Category Date Time Status US OB transvaginal Stat Exams 05/22/25 22:18 Completed Beta HCG,Quantitative Stat Lab 05/22/25 22:23 Completed CBC Stat Lab 05/22/25 22:23 Completed CMP [Comprehensive Metabolic Panel] Stat Lab 05/22/25 22:23 Completed Type and Screen Stat Lab 05/22/25 22:23 Completed Ketorolac Inj [Toradol Inj] Med 05/23/25 00:06 Pending 60 mg IM X1 ONE Vital Signs Vital signs: Vital Signs Temperature 98.9 F 05/22/25 22:13 Pulse Rate 87 05/22/25 22:13 Respiratory Rate 20 05/22/25 22:13 Blood Pressure 117/80 05/22/25 22:13 Pulse Oximetry (%) 98 05/22/25 22:13 Oxygen Delivery Method Room Air 05/22/25 22:13 O2 at 98% on RA and WNLs Vaginal Bleeding MDM Narrative MDM Narrative: 34F with history of DM and gestational HTN presents to ED with worsening vaginal bleeding after finding out she was having a miscarriage at [facility]. Bleeding was pretty stable until yesterday, when it got worse. Patient was discharged with conservative treatment. Physical exam reveals well-appearing female. Patient is afebrile, calm, and alert. US reveals subchorionic hemorrhage but no gestational sac, which patient states was on previous US at [facility]. Beta HCG is also lower compared to 2 weeks ago. Moderate leukocytosis, likely reactive, but no anemia. Blood type O+. Meds and rehabilitation counselor given. Patient data External records reviewed:: [facility] previous records Clinical information provided by:: patient Social determinants that could affect healthcare access:: none Patient has the following chronic illnesses:: DM How is presenting disease/condition affected by chronic disease/condition?: exacerbated by Evaluation data The following diagnostics were reviewed and interpreted by me:: lab results and radiology exam(s) Lab and/or radiology exams considered but not ordered:: ordered Interpretation Summary: above Medications / Prescriptions Medications or Prescriptions considered but not ordered:: ordered Medication administrations:: Medication Administration History Ketorolac Tromethamine (Ketorolac Inj 60 Mg/2 Ml Vial) 60 mg IM X1 ONE Stop: 05/23/25 00:07 above Consultations Consultation(s) initiated? (list below): No Diagnosis Vaginal Bleeding Differential Diagnosis: missed , threatened , dysfunctional uterine bleeding, menometrorrhagia, incomplete , ectopic without intrauterine and vaginal bleeding Most likely diagnosis given after review of the tests above:: incomplete miscarriage Admission Indicated Admission indicated?: not indicated Admission Request Was there a request for admission?: No Disposition Plan Disposition Plan: Discharge Discharge Attestation Discharge Attestation: The patient and all family members were given an opportunity to ask questions and understood the discharge instructions. Discharge instructions specifically effects, indications for sooner follow up or return to the emergency department, and the expected course of current diagnosis. Patient condition: Stable Discharge Plan Plan Patient Disposition: HOME (Self Care) Discharge Disposition comment: Stable Prescriptions/Referrals Prescriptions/Med Rec: No Action pseudoephedrine HCl 30 mg tablet 30 mg PO Q6H Qty: 20 0RF amlodipine 5 mg Tablet 5 mg PO DAILY metformin 1,000 mg Tablet 1,000 mg PO BID loratadine 10 mg Capsule 10 mg PO QDAY clindamycin HCl 300 mg Capsule 300 mg PO BID cephalexin 500 mg capsule 500 mg PO QID Qty: 28 0RF ondansetron 4 mg tablet,disintegrating 4 mg PO Q6H PRN (Reason: nausea and vomiting) Qty: 10 0RF acetaminophen [Tylenol Extra Strength] 500 mg tablet 1,000 mg PO Q6H PRN (Reason: pain) Qty: 30 0RF ibuprofen 600 mg tablet 600 mg PO Q6H PRN (Reason: pain) Qty: 30 0RF ibuprofen 800 mg tablet 800 mg PO Q6H PRN (Reason: pain) Qty: 14 0RF amlodipine 5 mg tablet 5 mg PO QDAY Qty: 14 0RF dicyclomine 20 mg tablet 20 mg PO TID PRN (Reason: abdominal pain) Qty: 30 0RF ondansetron 4 mg tablet,disintegrating 4 mg PO Q8H Qty: 20 0RF Referrals: Temporary Provider,ED [Physician, Emergency Medicine] - In 1 week Problem List Clinical Impression: Incomplete miscarriage Patient/Caregiver Discharge Instructions Education Materials: ED Miscarriage, Incomplete Additional Instructions: Please follow-up with PCP/OBGYN within 24-48 hours and return immediately if symptoms worsen. NSAIDs like ibuprofen tend to work better for this type of pain. It will also help with bleeding. Print Language: Icelandic Stand Alone Forms: Patient Portal Info Letter NAE/MODESTO Supervising Physician NAE/MODESTO Supervising Physician: Dr. Santiago
[2025-05-22 22:36] LABS: Basophils # (Auto) 0.1 Thou/mm3 (0.0-0.2); Basophils % (Auto) 0 % (0-2.5); Eosinophils # (Auto) 0.1 Thou/mm3 (0.0-0.5); Eosinophils % (Auto) 1 % (0-10); Hematocrit 36.8 % (36.0-46.0); Hemoglobin 12.3 g/dL (12.0-16.0); Immature Granulocytes Auto 0.06 Thou/mm3 (0.00-0.00); Lymphocytes # (Auto) 3.7 Thou/mm3 (1.0-4.8); Lymphocytes % (Auto) 23 % (10-50); Mean Corpuscular HGB Conc 33.4 g/dl (31.0-37.0); Mean Corpuscular Hemoglobin 29.9 pg (25.0-35.0); Mean Corpuscular Volume 90 fL (80-100); Monocytes # (Auto) 0.9 Thou/mm3 (0.0-0.8); Monocytes % (Auto) 5 % (0-12); Neutrophils # (Auto) 11.7 Thou/mm3 (1.8-7.7); Neutrophils % (Auto) 71 % (37-80); Nucleated Red Blood Cell # 0.00 Thou/mm3 (0.00-0.00); Nucleated Red Blood Cell % 0 /100 WBC (0); Platelet Count 370 Thou/mm3 (140-440); RDW Standard Deviation 43.8 fL (36.4-46.3); Red Blood Count 4.11 Miln/mm3 (4.00-5.20); White Blood Count 16.5 Thou/mm3 (3.6-11.0)
[2025-05-22 23:16] LABS: Alanine Aminotransferase 24 U/L (10-49); Albumin, Serum 4.6 gm/dL (3.5-5.0); Albumin/Globulin Ratio 1.5 (1.2-2.2); Alkaline Phosphatase 42 U/L (46-116); Anion Gap 11 (7-16); Aspartate Amino Transferase 21 U/L (0-34); BUN/Creatinine Ratio 13 Ratio (12-20); Beta HCG,Quantitative 1769 mIU/mL (<5.0); Bilirubin,Total 0.5 mg/dL (0.3-1.2); Blood Urea Nitrogen 10 mg/dL (9-23); Calcium 10.0 mg/dL (8.3-10.6); Calcium (Corrected) 10.0 mg/dL (8.5-10.1); Carbon Dioxide 21.5 mMol/L (20.0-31.0); Chloride 104 mMol/L (98-107); Creatinine (Component) 0.8 mg/dL (0.6-1.3); Estimated Creatinine Clearance 110.9 mL/min (>60); Globulin 3.0 gm/dL (2.3-3.5); Glucose 146 mg/dL (74-106); Osmolality,Calculated 273 (275-295); Potassium 4.0 mMol/L (3.4-5.1); Sodium 136 mMol/L (136-145); Total Protein 7.6 gm/dL (5.7-8.2); eGFR > 60 See Note
[2025-05-23] MEDS: KETOROLAC INJ 60 MG/2 ML VIAL IM (00:28)
[2025-05-23 00:32] VITALS: BP 112/70; PULSE 70; RESP 16; TEMP 36.7; O2SAT 98
== END 2025-05-23 00:33 | disposition home or self-care (01) ==
PROVIDERS: Physician Assistant; Emergency Provider Emergency Medicine
DX: O03.4 Incomplete spontaneous abortion without complication (principal)
CPT/HCPCS: 36415; 76817; 80053; 84702; 85025; 86850; 86900; 86901; 96372; 99283; J1885